=== PATIENT | male | born 1960 | race Caucasian/White ===

== ENCOUNTER 2016-09-26 07:23 | Emergency (ER) | payer BC ==
[2016-09-26] MEDS ORDERED: KETOROLAC TROMETHAMINE 60 MG/2 ML SDV IM ONE (07:59)
--- NOTE | 2016-09-26 08:30 | ER Document Report ---
ED Cardiac - General Chief Complaint: Rib Pain Stated Complaint: RIGHT SIDE PAIN Mode of Arrival: Ambulatory Information source: Patient TRAVEL OUTSIDE OF THE [place] IN LAST 30 DAYS: No - HPI Patient complains to provider of: Chest pain Notes: Patient arrives with complaints of right chest wall pain for the last 2 weeks. The pain has been constant. Seems to be getting slightly worse over the last few days. Pain is worse when he touches the right side of his chest. He denies any cough. He denies any shortness of breath. He denies any abdominal pain. He denies any nausea, vomiting, diarrhea. No rash. No dysuria or hematuria. Patient denies any known medical problems and is on no medications. He is a daily smoker. He denies any recent trips or surgeries, no leg pain or swelling, no history DVT or PE. No hemoptysis. Pain is worse with touching the area, nothing seems to make it better. Denies any diaphoresis. He has no other complaints at this moment. - Related Data Allergies/Adverse Reactions: meperidine HCl [From Demerol] Allergy (Intermediate, Verified 09/26/16 07:34) Hives Past Medical History - Social History Smoking Status: Current Every Day Smoker Chew tobacco use (# tins/day): No Frequency of alcohol use: Heavy Drug Abuse: None Family History: Reviewed & Not Pertinent Patient has suicidal ideation: No Patient has homicidal ideation: No Renal/ Medical History: Denies: Hx Peritoneal Dialysis Past Surgical History: Reports: Hx Appendectomy, Hx Orthopedic Surgery - left thumb; broken rib - Immunizations Immunizations up to date: No Hx Diphtheria, Pertussis, Tetanus Vaccination: Yes Review of Systems - Review of Systems -: Yes All other systems reviewed and negative Physical Exam - Vital signs Vitals: Temp Pulse Resp BP Pulse Ox 98.4 F 93 18 189/96 H 97 09/26/16 07:34 09/26/16 07:34 09/26/16 07:34 09/26/16 07:34 09/26/16 07:34 Interpretation: Normal - General General appearance: Appears well, Alert - HEENT Head: Normocephalic, Atraumatic Eyes: Normal Pupils: PERRL Mouth/Lips: Normal Mucous membranes: Normal - Respiratory Respiratory status: No respiratory distress Chest status: Tender - Right lateral ribs. No crepitus. No mass. Breath sounds: Normal Chest palpation: Normal - Cardiovascular Rhythm: Regular Heart sounds: Normal auscultation Murmur: No - Abdominal Inspection: Normal Distension: No distension Bowel sounds: Normal Tenderness: Nontender Organomegaly: No organomegaly - Back Back: Normal, Nontender. No: CVA tenderness - Extremities General upper extremity: Normal inspection, Nontender, Normal color, Normal ROM , Normal temperature General lower extremity: Normal inspection, Nontender, Normal color, Normal ROM , Normal temperature, Normal weight bearing. No: Tender, Edema, Rolando's sign - Neurological Neuro grossly intact: Yes Cognition: Normal Orientation: AAOx4 Prab[place] Coma Scale Eye Opening: Spontaneous Prabha Coma Scale Verbal: Oriented [place] Coma Scale Motor: Obeys Commands Prabha Coma Scale Total: 15 Speech: Normal Motor strength normal: LUE, RUE, LLE, RLE Sensory: Normal - Psychological Associated symptoms: Normal affect, Normal mood - Skin Skin Temperature: Warm Skin Moisture: Dry Skin Color: Normal Course - Re-evaluation Re-evalutation: 09/26/16 10:23 09/26/16 10:24 Patient is nontoxic appearing with stable vitals. He's had constant right- sided chest pain for the last 2 weeks it has gotten worse over the last few days. Pain is worse with touching the area. He denies any injury. He denies any shortness of breath. He denies any abdominal pain. His exam is benign. He has no abdominal tenderness on exam. LFTs and lipase are normal. Patient has reproducible right lateral chest wall tenderness to palpation. Chest x-ray shows COPD without any other acute abnormalities. Troponin is negative and the patient has had constant chest pain for 2 weeks. Patient has no known CAD, hypertension, hyperlipidemia, diabetes. He is a smoker. This point the patient will be discharged home with NSAIDs for chest wall pain. He has an appointment with a new primary care doctor on Friday. He was instructed to keep this appointment. Follow-up sooner for increased pain, fever, difficulty breathing, abdominal pain, persistent vomiting, or any further concerns. The patient is noted to have elevated blood pressure during today's emergency department visit. The patient was informed of this finding. The patient was instructed that this may be related to pre-hypertension and requires further evaluation with a primary care provider. The patient has no hypertensive symptoms at this time. The patient's emergency department workup and current diagnosis were explained to the patient and or family. Follow-up instructions were provided. Medications if prescribed were discussed. Instructions for when to return to the emergency department including specific worrisome symptoms were discussed with the patient and/or family. - Vital Signs Vital signs: Temp Pulse Resp BP Pulse Ox 98.4 F 93 18 189/96 H 97 09/26/16 07:34 09/26/16 07:34 09/26/16 07:34 09/26/16 07:34 09/26/16 07:34 - Laboratory Result Diagrams: 09/26/16 09:30 09/26/16 09:30 Laboratory results interpreted by me: 09/26/16 09:30 Urine Ketones TRACE H - EKG Interpretation by Tn EKG shows normal: Sinus rhythm, Intervals, QRS Complexes, ST-T Waves Rate: Normal When compared to previous EKG there are: Previous EKG unavailable Additional EKG results interpreted by me: 09/26/16 09:36 Left ventricular hypertrophy Discharge - Discharge Clinical Impression: Chest pain Qualifiers: Chest pain type: unspecified Qualified Code(s): R07.9 - Chest pain, unspecified Condition: Stable Disposition: HOME, SELF-CARE Instructions: Chest Wall Pain ([facility]), Chest Pain of Unclear Cause ([facility]) Additional Instructions: Take medications as prescribed. Follow-up with your new primary care doctor as scheduled on Friday. Follow-up sooner for increased pain, fever, abdominal pain, persistent vomiting, high fever, shortness of breath, or any further concerns. Your blood pressure was elevated during today's visit. Have this rechecked with your doctor. Prescriptions: Diclofenac Sodium [Voltaren] 75 mg PO BID #20 tablet.dr Forms: Elevated Blood Pressure
[2016-09-26 09:43] LABS: ABSOLUTE BASOPHILS # (AUTO) 0.1 10^3/uL (0.0-0.2); ABSOLUTE EOSINOPHILS # (AUTO) 0.1 10^3/uL (0.0-0.6); ABSOLUTE LYMPHOCYTES (AUTO) 1.8 10^3/uL (0.5-4.7); ABSOLUTE MONOCYTES (AUTO) 0.5 10^3/uL (0.1-1.4); ABSOLUTE NEUT (AUTO) 4.5 10^3/uL (1.7-8.2); BASOPHILS % (AUTO) 1.2 % (0-2); EOSINOPHILS % (AUTO) 0.8 % (0-6); HEMATOCRIT 47.1 % (37.9-51.0); HEMOGLOBIN 16.4 g/dL (13.5-17.0); HGB HCT DIFFERENCE 2.1; LYMPHOCYTES % (AUTO) 25.1 % (13-45); MEAN CORPUSCULAR HEMOGLOBIN 32.3 pg (27.0-33.4); MEAN CORPUSCULAR HGB CONC 34.8 g/dL (32.0-36.0); MEAN CORPUSCULAR VOLUME 93 fl (80-97); MONOCYTES % (AUTO) 7.7 % (3-13); RED BLOOD COUNT 5.07 10^6/uL (4.35-5.55); RED CELL DISTRIBUTION WIDTH 13.2 % (11.5-14.0); SEGMENTED NEUTROPHILS % (AUTO) 65.2 % (42-78)
[2016-09-26 09:45] LABS: APPEARANCE,URINE CLEAR; BILIRUBIN,URINE NEGATIVE (NEGATIVE); GLUCOSE, URINE NEGATIVE (NEGATIVE); KETONES,URINE TRACE mg/dL (NEGATIVE); LEUKOCYTE ESTERASE,URINE NEGATIVE (NEGATIVE); NITRITE,URINE NEGATIVE (NEGATIVE); PROTEIN,URINE NEGATIVE (NEGATIVE); URINE SPECIFIC GRAVITY 1.014; UROBILINOGEN,URINE NEGATIVE mg/dL (<2.0)
[2016-09-26 09:58] LABS: ALANINE AMINOTRANSFERASE 43 U/L (21-72); ALBUMIN 4.2 g/dL (3.5-5.0); ALKALINE PHOSPHATASE 119 U/L (38-126); ANION GAP 10 (5-19); ASPARTATE AMINO TRANSFERASE 46 U/L (17-59); BILIRUBIN,DIRECT 0.2 mg/dL (0.0-0.4); BILIRUBIN,TOTAL 0.7 mg/dL (0.2-1.3); BLOOD UREA NITROGEN 9 mg/dL (7-20); CALCIUM 9.3 mg/dL (8.4-10.2); CARBON DIOXIDE 29 mmol/L (22-30); CHLORIDE 101 mmol/L (98-107); CREATINE KINASE 166 U/L (55-170); CREATININE RESULT 0.78 mg/dL (0.52-1.25); GLUCOSE 78 mg/dL (75-110); LIPASE 105.9 U/L (23-300); POTASSIUM 4.7 mmol/L (3.6-5.0); TOTAL PROTEIN 7.7 g/dL (6.3-8.2)
[2016-09-26 11:48] VITALS: BP 150/84
--- NOTE | 2016-09-26 15:32 | EKG REPORT ---
SEVERITY:- ABNORMAL ECG - SINUS RHYTHM LEFT VENTRICULAR HYPERTROPHY ANTERIOR Q WAVES, POSSIBLY DUE TO LVH : Confirmed by: Cecilia Lemos MD 26-Sep-2016 15:31:49
== END 2016-09-26 11:39 | disposition home or self-care (01) ==
LOC: ER 07:23
DX: R07.89 Other chest pain (principal); J44.9 Chronic obstructive pulmonary disease, unspecified; I51.7 Cardiomegaly; R03.0 Elevated blood-pressure reading, without diagnosis of hypertension; F17.200 Nicotine dependence, unspecified, uncomplicated; Z88.5 Allergy status to narcotic agent
CPT/HCPCS: 93005; 99284; 96374; 36415; 82550; 83690; 85025; 80053; 81001; 84484; 71020; 93010; J1885

== ENCOUNTER 2016-09-28 05:27 | Emergency (ER) | payer BC ==
--- NOTE | 2016-09-28 06:08 | EKG REPORT ---
SEVERITY:- BORDERLINE ECG - SINUS RHYTHM BORDERLINE R WAVE PROGRESSION, ANTERIOR LEADS BORDERLINE T ABNORMALITIES, INFERIOR LEADS : Confirmed by: Carina Dixon 28-Sep-2016 06:07:32
[2016-09-28 06:26] LABS: ABSOLUTE BASOPHILS # (AUTO) 0.1 10^3/uL (0.0-0.2); ABSOLUTE EOSINOPHILS # (AUTO) 0.1 10^3/uL (0.0-0.6); ABSOLUTE LYMPHOCYTES (AUTO) 1.2 10^3/uL (0.5-4.7); ABSOLUTE MONOCYTES (AUTO) 0.5 10^3/uL (0.1-1.4); ABSOLUTE NEUT (AUTO) 7.1 10^3/uL (1.7-8.2); BASOPHILS % (AUTO) 0.6 % (0-2); EOSINOPHILS % (AUTO) 1.1 % (0-6); HEMATOCRIT 47.1 % (37.9-51.0); HEMOGLOBIN 16.3 g/dL (13.5-17.0); HGB HCT DIFFERENCE 1.8; LYMPHOCYTES % (AUTO) 13.9 % (13-45); MEAN CORPUSCULAR HEMOGLOBIN 32.3 pg (27.0-33.4); MEAN CORPUSCULAR HGB CONC 34.7 g/dL (32.0-36.0); MEAN CORPUSCULAR VOLUME 93 fl (80-97); MONOCYTES % (AUTO) 5.7 % (3-13); RED BLOOD COUNT 5.06 10^6/uL (4.35-5.55); RED CELL DISTRIBUTION WIDTH 13.6 % (11.5-14.0); SEGMENTED NEUTROPHILS % (AUTO) 78.7 % (42-78)
[2016-09-28 06:37] LABS: ALANINE AMINOTRANSFERASE 40 U/L (21-72); ALBUMIN 3.9 g/dL (3.5-5.0); ALKALINE PHOSPHATASE 96 U/L (38-126); ANION GAP 14 (5-19); ASPARTATE AMINO TRANSFERASE 36 U/L (17-59); BILIRUBIN,DIRECT 0.3 mg/dL (0.0-0.4); BILIRUBIN,TOTAL 0.5 mg/dL (0.2-1.3); BLOOD UREA NITROGEN 7 mg/dL (7-20); CALCIUM 9.1 mg/dL (8.4-10.2); CARBON DIOXIDE 23 mmol/L (22-30); CHLORIDE 107 mmol/L (98-107); CREATINE KINASE 188 U/L (55-170); CREATININE RESULT 0.75 mg/dL (0.52-1.25); GLUCOSE 102 mg/dL (75-110); POTASSIUM 4.2 mmol/L (3.6-5.0); SODIUM 143.6 mmol/L (137-145); TOTAL PROTEIN 7.3 g/dL (6.3-8.2)
[2016-09-28 06:48] LABS: CREATINE KINASE MB 1.73 ng/mL (<4.55)
[2016-09-28 07:00] LABS: TROPONIN I < 0.012 ng/mL
[2016-09-28] MEDS ORDERED: MECLIZINE HCL 25 MG TABLET PO ONE (07:28)
--- NOTE | 2016-09-28 07:31 | ER Document Report ---
ED General - General Chief Complaint: Dizziness Stated Complaint: DIZZINESS AND BLOOD IN STOOL Mode of Arrival: Ambulatory Information source: Patient Notes: 56-year-old male presents with complaints of one month duration of right rib pain and 4 day duration of intermittent dizziness and one episode of bright red rectal bleeding today. Patient denies any pain anywhere else. right rib pain is worsened with palpation and side bending. Denies any chest pain denies any shortness breath diaphoresis. Denies any aggravating or relieving factors for his dizziness. Denies any earache headache neurological deficits TRAVEL OUTSIDE OF THE [place] IN LAST 30 DAYS: No - HPI Onset: Other Onset/Duration: Persistent Quality of pain: Sharp Severity: Mild Pain Level: 1 Associated symptoms: Body/muscle aches, Weakness Exacerbated by: Denies Relieved by: Denies Similar symptoms previously: Yes Recently seen / treated by doctor: Yes - Related Data Allergies/Adverse Reactions: meperidine HCl [From Demerol] Allergy (Intermediate, Verified 09/26/16 07:34) Hives Past Medical History - Social History Smoking Status: Current Every Day Smoker Cigarette use (# per day): Yes Chew tobacco use (# tins/day): No Smoking Education Provided: No Frequency of alcohol use: Heavy Drug Abuse: Marijuana Family History: Reviewed & Not Pertinent Patient has suicidal ideation: No Patient has homicidal ideation: No Pulmonary Medical History: Reports: Hx COPD - recently diagnosised Renal/ Medical History: Denies: Hx Peritoneal Dialysis Past Surgical History: Reports: Hx Appendectomy, Hx Orthopedic Surgery - left thumb; broken rib - Immunizations Immunizations up to date: No Hx Diphtheria, Pertussis, Tetanus Vaccination: Yes Review of Systems - Review of Systems Notes: REVIEW OF SYSTEMS: CONSTITUTIONAL : Denies fever, chills, or sweats. Denies recent illness. EENT: Denies eye, ear, throat, or mouth pain or symptoms. Denies nasal or sinus congestion or discharge. Denies throat, tongue, or mouth swelling or difficulty swallowing. CARDIOVASCULAR: Denies chest pain. Denies palpitations or racing or irregular heart beat. Denies ankle edema. Admits to right rib pain RESPIRATORY: Denies cough, cold, or chest congestion. Denies shortness of breath, difficulty breathing, or wheezing. GASTROINTESTINAL: Denies abdominal pain or distention. Denies nausea, vomiting , or diarrhea. Denies black, tarry stools. Denies constipation. Admits to rectal bleeding GENITOURINARY: Denies difficulty urinating, painful urination, burning, frequency, blood in urine, or discharge. MUSCULOSKELETAL: Denies back or neck pain or stiffness. Denies joint pain or swelling. SKIN: Denies rash, lesions or sores. HEMATOLOGIC : Denies easy bruising or bleeding. LYMPHATIC: Denies swollen, enlarged glands. NEUROLOGICAL: Admits to dizziness PSYCHIATRIC: Denies anxiety or stress. Denies depression, suicidal ideation, or homicidal ideation. ALL OTHER SYSTEMS REVIEWED AND NEGATIVE. Dictation was performed using [employer] recognition software PHYSICAL EXAMINATION: GENERAL: Well-appearing, well-nourished and in no acute distress. HEAD: Atraumatic, normocephalic. EYES: Pupils equal round and reactive to light, extraocular movements intact, sclera anicteric, conjunctiva are normal. ENT: Nares patent, oropharynx clear without exudates. Moist mucous membranes. NECK: Normal range of motion, supple without lymphadenopathy LUNGS: Breath sounds clear to auscultation bilaterally and equal. No wheezes rales or rhonchi. Tenderness on palpation of the right rib anterior 10 HEART: Regular rate and rhythm without murmurs ABDOMEN: Soft, nontender, nondistended abdomen. No guarding, no rebound. No masses appreciated. Musculoskeletal: Normal range of motion, no pitting or edema. No cyanosis. NEUROLOGICAL: Cranial nerves grossly intact. Normal speech, normal gait. Normal sensory, motor exams PSYCH: Normal mood, normal affect. SKIN: Warm, Dry, normal turgor, no rashes or lesions noted. Physical Exam - Vital signs Vitals: Temp Pulse Resp BP Pulse Ox 98.2 F 71 16 154/95 H 96 09/28/16 05:32 09/28/16 05:32 09/28/16 05:32 09/28/16 05:32 09/28/16 05:32 Course - Re-evaluation Re-evalutation: 09/28/16 07:31 Patient's lab work again notes no significant abnormality, CTs have been ordered patient treated for his dizziness Hemoccult was negative 09/28/16 09:06 CT is concerning for a nondisplaced fracture. Patient otherwise appears well, lab work note no significant abnormality. No significant abnormality noted for dizziness, I will have the patient follow- up with cardiology After performing a Medical Screening Examination, I estimate there is LOW risk for INTRACRANIAL HEMORRHAGE, ISCHEMIC CVA, MALIGNANT DYSRHYTHMIA, ACUTE CORONARY SYNDROME, MENINGITIS, PULMONARY EMBOLISM, or SEPSIS thus I consider the discharge disposition reasonable. The patient and I have discussed the diagnosis and risks, and we agree with discharging home with close follow-up with the understanding that symptoms and presentations can change. We also discussed returning to the Emergency Department immediately if new or worsening symptoms occur. We have discussed the symptoms which are most concerning (e.g., changing or worsening pain, weakness, vomiting, fever) that necessitate immediate return. - Vital Signs Vital signs: Temp Pulse Resp BP Pulse Ox 98.3 F 71 16 154/95 H 99 09/28/16 05:32 09/28/16 05:32 09/28/16 06:01 09/28/16 06:01 09/28/16 06:01 - Laboratory Result Diagrams: 09/28/16 05:10 09/28/16 05:10 Laboratory results interpreted by me: 09/28/16 09/28/16 05:10 05:10 Seg Neutrophils % 78.7 H Creatine Kinase 188 H - Diagnostic Test Radiology reviewed: Image reviewed, Reports reviewed - EKG Interpretation by Me EKG shows normal: Sinus rhythm, [place], Intervals, QRS Complexes Discharge - Discharge Clinical Impression: Dizzy, Rectal bleeding Rib fracture Qualifiers: Encounter type: initial encounter Rib fracture type: single rib Fracture type: closed Laterality: right Qualified Code(s): S22.31XA - Fracture of one rib, right side, initial encounter for closed fracture Condition: Stable Disposition: HOME, SELF-CARE Instructions: Dizziness ([facility]) Prescriptions: Hydrocodone/Acetaminophen [[place] 5-325 mg Tablet] 1 tab PO Q6 #14 tablet Meclizine HCl [Antivert 25 mg Tablet] 25 mg PO TID PRN #21 tablet PRN Reason: Referrals: DAVID BOUCHER MD [ACTIVE STAFF] - Follow up tomorrow
[2016-09-28 09:26] VITALS: BP 164/102
[2016-09-28] MEDS ORDERED: OXYCODONE-ACETAMINOPHEN 5-325 MG TABLET PO ONE (09:26)
== END 2016-09-28 09:38 | disposition home or self-care (01) ==
LOC: ER 05:27
DX: S22.31XA Fracture of one rib, right side, initial encounter for closed fracture (principal); R42 Dizziness and giddiness; R19.5 Other fecal abnormalities; R07.81 Pleurodynia; F17.210 Nicotine dependence, cigarettes, uncomplicated; X58.XXXA Exposure to other specified factors, initial encounter
CPT/HCPCS: 36415; 70450; 71250; 80053; 82272; 82550; 82553; 84484; 85025; 93005; 93010; 99284

== ENCOUNTER 2017-05-11 21:01 | Emergency (ER) | payer BC ==
[2017-05-11] MEDS ORDERED: ASPIRIN 81 MG TABLET, CHEWABLE PO ONE (23:09)
[2017-05-11] MEDS ORDERED: ASPIRIN 81 MG TABLET, CHEWABLE ONE (23:09)
--- NOTE | 2017-05-11 23:09 | ER Document Report ---
ED Medical Screen (RME) - General Chief Complaint: Chest Pain Stated Complaint: CHEST/LEFT ARM PAIN Time Seen by Provider: 05/11/17 23:07 Mode of Arrival: Ambulatory Information source: Patient TRAVEL OUTSIDE OF THE [place] IN LAST 30 DAYS: No - HPI Patient complains to provider of: Chest pain Onset: Yesterday Notes: 05/11/17 23:08 Patient is a 57-year-old male who began experiencing left-sided chest pain yesterday, he is having pain down the left arm today as well, reports associated shortness of breath, no aggravating or alleviating factors, no history of coronary artery disease - Related Data Allergies/Adverse Reactions: meperidine HCl [From Demerol] Allergy (Intermediate, Verified 09/26/16 07:34) Hives Past Medical History Pulmonary Medical History: Reports: Hx COPD - recently diagnosised Renal/ Medical History: Denies: Hx Peritoneal Dialysis Past Surgical History: Reports: Hx Appendectomy, Hx Orthopedic Surgery - left thumb; broken rib - Immunizations Immunizations up to date: No Hx Diphtheria, Pertussis, Tetanus Vaccination: Yes
[2017-05-11 23:32] LABS: ABSOLUTE BASOPHILS # (AUTO) 0.1 10^3/uL (0.0-0.2); ABSOLUTE EOSINOPHILS # (AUTO) 0.1 10^3/uL (0.0-0.6); ABSOLUTE LYMPHOCYTES (AUTO) 1.5 10^3/uL (0.5-4.7); ABSOLUTE MONOCYTES (AUTO) 0.7 10^3/uL (0.1-1.4); ABSOLUTE NEUT (AUTO) 6.2 10^3/uL (1.7-8.2); BASOPHILS % (AUTO) 1.2 % (0-2); EOSINOPHILS % (AUTO) 1.1 % (0-6); HEMATOCRIT 45.8 % (37.9-51.0); HGB HCT DIFFERENCE 2.2; LYMPHOCYTES % (AUTO) 17.1 % (13-45); MEAN CORPUSCULAR HEMOGLOBIN 32.3 pg (27.0-33.4); MEAN CORPUSCULAR VOLUME 92 fl (80-97); MONOCYTES % (AUTO) 8.4 % (3-13); RED BLOOD COUNT 4.96 10^6/uL (4.35-5.55); RED CELL DISTRIBUTION WIDTH 12.2 % (11.5-14.0); SEGMENTED NEUTROPHILS % (AUTO) 72.2 % (42-78); WHITE BLOOD COUNT 8.6 10^3/uL (4.0-10.5)
[2017-05-11] MEDS ORDERED: HYDROCODONE/ACETAMINOPHEN 5-325 MG TABLET PO ONE (23:37)
[2017-05-11] MEDS ORDERED: ONDANSETRON 4 MG TAB.RAPDIS PO ONE (23:37)
--- NOTE | 2017-05-11 23:39 | ER Document Report ---
ED General - General Chief Complaint: Chest Pain Stated Complaint: CHEST/LEFT ARM PAIN Time Seen by Provider: 05/11/17 23:07 Mode of Arrival: Ambulatory Notes: Patient is a 57-year-old male comes emergency department for chief complaint of chest pain and left shoulder pain. He states that since yesterday his left shoulder has been hurting constantly, he cannot lift it over his head, he reports tingling sensation in his hand occasionally. He also states that he started to have pain across his left chest and right chest as well. He has not taken anything for this. He denies injury. He denies history of the same. He states that he has had some shortness of breath when the pain gets very sharp, denies nausea or vomiting, denies current shortness of breath. Denies fever. He smokes, he was told he has COPD, otherwise he denies any diagnosed medical problems. Never had a stress test, never had a heart attack. TRAVEL OUTSIDE OF THE [place] IN LAST 30 DAYS: No - Related Data Allergies/Adverse Reactions: meperidine HCl [From Demerol] Allergy (Intermediate, Verified 09/26/16 07:34) Hives Past Medical History - General Information source: Patient - Social History Smoking Status: Current Every Day Smoker Smoking Education Provided: Yes - <3 min Frequency of alcohol use: Occasional Drug Abuse: Marijuana Lives with: Family Family History: Reviewed & Not Pertinent Patient has suicidal ideation: No Patient has homicidal ideation: No Pulmonary Medical History: Reports: Hx COPD Renal/ Medical History: Denies: Hx Peritoneal Dialysis Past Surgical History: Reports: Hx Appendectomy, Hx Orthopedic Surgery - left thumb; broken rib - Immunizations Immunizations up to date: No Hx Diphtheria, Pertussis, Tetanus Vaccination: Yes Review of Systems - Review of Systems Constitutional: No symptoms reported EENT: No symptoms reported Cardiovascular: See HPI Respiratory: See HPI Gastrointestinal: No symptoms reported Genitourinary: No symptoms reported Male Genitourinary: No symptoms reported Musculoskeletal: No symptoms reported Skin: No symptoms reported Hematologic/Lymphatic: No symptoms reported Neurological/Psychological: No symptoms reported Physical Exam - Vital signs Vitals: Pulse Ox 98 05/11/17 23:09 Interpretation: Normal - General General appearance: Appears well, Alert - HEENT Head: Normocephalic, Atraumatic Eyes: Normal Pupils: PERRL - Respiratory Respiratory status: No respiratory distress. No: Labored, Retractions, Tachypnea Chest status: Nontender Breath sounds: Decreased air movement. No: Rales, Rhonchi, Stridor, Wheezing Chest palpation: Normal - Cardiovascular Rhythm: Regular. No: Tachycardia, Bradycardia Heart sounds: Normal auscultation, S1 appreciated, S2 appreciated Murmur: No - Abdominal Inspection: Normal Distension: No distension Bowel sounds: Normal Tenderness: Nontender. 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 General lower extremity: Normal inspection, Nontender, Normal color, Normal ROM , Normal temperature, Normal weight bearing. No: Rolando's sign - Neurological Neuro grossly intact: Yes Cognition: Normal Orientation: AAOx4 [place] Coma Scale Eye Opening: Spontaneous [place] Coma Scale Verbal: Oriented [place] Coma Scale Motor: Obeys Commands [place] Coma Scale Total: 15 Speech: Normal Motor strength normal: LUE, RUE, LLE, RLE Sensory: Normal - Psychological Associated symptoms: Normal affect, Normal mood - Skin Skin Temperature: Warm Skin Moisture: Dry Skin Color: Normal Course - Re-evaluation Re-evalutation: EKG showing sinus rhythm, borderline abnormalities with slightly inverted T waves inferiorly, no significant T-wave depressions, no noted ST segment changes , no significant change from prior EKG. Chest x-ray with no acute findings. Patient has 2 complaints, he has a painful shoulder including the rotator cuff and trapezius muscle on the left side with limited range of motion of the left arm with abduction due to pain, however he separately has pain in his chest that began earlier today which prompted him coming in tonight. He was treated for both with aspirin and pain medication. CBC unremarkable, chemistry generally unremarkable. Troponin is elevated at 0.261 consistent with NSTEMI. Patient given nitroglycerin, Lovenox. On reevaluation patient states he does have some pain in his arm but he feels much better otherwise. No hypotension, tachycardia, patient clinically appears well. Discussed with Dr. Ghotra. Discussed results with patient. We do not have interventional cardiology at this facility. Patient requests [facility]. 05/12/17 00:30 Called [facility] transfer center, pending call back. 05/12/17 01:23 Spoke to transfer center, still pending call back from cardiology, report is they are backed up but will call soon. Patient no longer having chest pain, he does have the left shoulder pain but this seems musculoskeletal and appears to be a separate issue (along with lost range of motion with musculoskeletal strain ). Patient states he does not have the chest pain that he had earlier but he will let me know if it returns. 05/12/17 01:39 Transfer accepted by [facility]. 05/12/17 03:50 Patient reevaluated, transport team is almost here, he denies any chest pain, he states he feels "great now". Vital signs with no significant change from prior. Stable for transport. - Vital Signs Vital signs: Temp Pulse Resp BP Pulse Ox 18 122/98 H 95 05/12/17 03:02 05/12/17 03:02 05/12/17 03:02 - Laboratory Result Diagrams: 05/11/17 23:14 05/11/17 23:14 Laboratory results interpreted by me: 05/11/17 23:14 Creatine Kinase 188 H Discharge - Discharge Clinical Impression: NSTEMI (non-ST elevated myocardial infarction) Chest pain Qualifiers: Chest pain type: unspecified Qualified Code(s): R07.9 - Chest pain, unspecified Left shoulder pain Qualifiers: Chronicity: acute Qualified Code(s): M25.512 - Pain in left shoulder Condition: Stable Disposition: [facility]
[2017-05-11 23:45] LABS: ALANINE AMINOTRANSFERASE 43 U/L (21-72); ALBUMIN 4.1 g/dL (3.5-5.0); ALKALINE PHOSPHATASE 112 U/L (38-126); ANION GAP 15 (5-19); ASPARTATE AMINO TRANSFERASE 33 U/L (17-59); BILIRUBIN,DIRECT 0.4 mg/dL (0.0-0.4); BILIRUBIN,TOTAL 0.5 mg/dL (0.2-1.3); BLOOD UREA NITROGEN 12 mg/dL (7-20); CALCIUM 9.2 mg/dL (8.4-10.2); CARBON DIOXIDE 25 mmol/L (22-30); CHLORIDE 101 mmol/L (98-107); CREATINE KINASE 188 U/L (55-170); GLUCOSE 104 mg/dL (75-110); POTASSIUM 4.5 mmol/L (3.6-5.0); SODIUM 140.5 mmol/L (137-145); TOTAL PROTEIN 8.1 g/dL (6.3-8.2)
[2017-05-11 23:57] LABS: CREATINE KINASE MB 3.02 ng/mL (<4.55)
--- NOTE | 2017-05-12 00:02 | RADIOLOGY REPORT (SQ) ---
EXAM DESCRIPTION: CHEST PA/LAT COMPLETED DATE/TIME: 05/11/2017 11:53 pm REASON FOR STUDY: cp COMPARISON: September 2016 EXAM PARAMETERS: NUMBER OF VIEWS: two views TECHNIQUE: Digital Frontal and Lateral radiographic views of the chest acquired. RADIATION DOSE: NA LIMITATIONS: none FINDINGS: LUNGS AND PLEURA: No opacities, masses or pneumothorax. No pleural effusion. Again there is evidence for obstructive lung disease. MEDIASTINUM AND HILAR STRUCTURES: No masses or contour abnormalities. HEART AND VASCULAR STRUCTURES: Heart normal size. No evidence for failure. BONES: No acute findings. HARDWARE: None in the chest. OTHER: No other significant finding. IMPRESSION: No significant interval change. No acute findings. Other findings as noted above TECHNICAL DOCUMENTATION: JOB ID: [id number] [employer]- All Rights Reserved
[2017-05-12 00:11] LABS: TROPONIN I 0.281 ng/mL
[2017-05-12] MEDS ORDERED: MORPHINE SULFATE 10 MG/ML INJ IV ONE (00:20)
[2017-05-12] MEDS ORDERED: NITROGLYCERIN 2% OINTMENT 1 GM PACKET TP ONE (00:20)
[2017-05-12] MEDS ORDERED: ENOXAPARIN SODIUM INJ 80 MG/0.8 ML DISP.SYRIN SUBCUT SCH (00:30)
[2017-05-12 03:52] VITALS: BP 122/98
--- NOTE | 2017-05-12 23:19 | EKG REPORT ---
SEVERITY:- ABNORMAL ECG - SINUS RHYTHM LEFT VENTRICULAR HYPERTROPHY BORDERLINE T ABNORMALITIES, INFERIOR LEADS : Confirmed by: Carina Dixon 12-May-2017 23:18:54
== END 2017-05-12 04:19 | disposition short-term general hospital (02) ==
LOC: ER 21:01
DX: I21.4 Non-ST elevation (NSTEMI) myocardial infarction (principal); R07.9 Chest pain, unspecified; M25.512 Pain in left shoulder; F17.200 Nicotine dependence, unspecified, uncomplicated; J44.9 Chronic obstructive pulmonary disease, unspecified
CPT/HCPCS: 93005; 99285; 96372; 96374; 36415; 82553; 82550; 85025; 80053; 84484; 71020; 93010; S0119; J2270; J1650

== ENCOUNTER 2017-08-29 23:55 | Emergency (ER) | payer BC ==
[2017-08-29] MEDS ORDERED: ASPIRIN 81 MG TABLET, CHEWABLE PO ONE (23:58)
--- NOTE | 2017-08-30 00:31 | ER Document Report ---
ED General - General Chief Complaint: Chest Pain Stated Complaint: CHEST PAIN Time Seen by Provider: 08/30/17 00:12 Mode of Arrival: Ambulatory Information source: Patient Notes: 57-year-old male history of [place] in April who has been off his Plavix for the past week presents with complaints of chest pain. Patient notes this feels pretty similar to previous [place]. He denies any fevers or chills admits to nausea states the pain is across his chest and woke him up from sleep TRAVEL OUTSIDE OF THE [place] IN LAST 30 DAYS: No - HPI Onset: Just prior to arrival Onset/Duration: Sudden Quality of pain: Pressure Severity: Moderate Pain Level: 3 Associated symptoms: Chest pain Exacerbated by: Denies Relieved by: Denies Similar symptoms previously: Yes Recently seen / treated by doctor: Yes - Related Data Allergies/Adverse Reactions: meperidine HCl [From Demerol] Allergy (Intermediate, Verified 08/29/17 23:55) Hives Past Medical History - Social History Smoking Status: Never Smoker Cigarette use (# per day): No Chew tobacco use (# tins/day): No Smoking Education Provided: No Family History: Reviewed & Not Pertinent Pulmonary Medical History: Reports: Hx COPD Renal/ Medical History: Denies: Hx Peritoneal Dialysis Past Surgical History: Reports: Hx Appendectomy, Hx Orthopedic Surgery - left thumb; broken rib - Immunizations Immunizations up to date: No Hx Diphtheria, Pertussis, Tetanus Vaccination: Yes Review of Systems - Review of Systems Notes: REVIEW OF SYSTEMS: CONSTITUTIONAL : Denies fever, chills, or sweats. Denies recent illness. EENT: Denies eye, ear, throat, or mouth pain or symptoms. Denies nasal or sinus congestion or discharge. Denies throat, tongue, or mouth swelling or difficulty swallowing. CARDIOVASCULAR: Admits to chest pain. RESPIRATORY: Denies cough, cold, or chest congestion. Denies shortness of breath, difficulty breathing, or wheezing. GASTROINTESTINAL: Denies abdominal pain or distention. Denies nausea, vomiting , or diarrhea. Denies blood in vomitus, stools, or per rectum. Denies black, tarry stools. Denies constipation. GENITOURINARY: Denies difficulty urinating, painful urination, burning, frequency, blood in urine, or discharge. MUSCULOSKELETAL: Denies back or neck pain or stiffness. Denies joint pain or swelling. SKIN: Denies rash, lesions or sores. HEMATOLOGIC : Denies easy bruising or bleeding. LYMPHATIC: Denies swollen, enlarged glands. NEUROLOGICAL: Denies confusion or altered mental status. Denies passing out or loss of consciousness. Denies dizziness or lightheadedness. Denies headache. Denies weakness or paralysis or loss of use of either side. Denies problems with gait or speech. Denies sensory loss, numbness, or tingling. Denies seizures. PSYCHIATRIC: Denies anxiety or stress. Denies depression, suicidal ideation, or homicidal ideation. ALL OTHER SYSTEMS REVIEWED AND NEGATIVE. Dictation was performed using [employer] voice recognition software PHYSICAL EXAMINATION: GENERAL: Well-appearing, well-nourished and in no acute distress. HEAD: Atraumatic, normocephalic. EYES: Pupils equal round and reactive to light, extraocular movements intact, sclera anicteric, conjunctiva are normal. ENT: Nares patent, oropharynx clear without exudates. Moist mucous membranes. NECK: Normal range of motion, supple without lymphadenopathy LUNGS: Breath sounds clear to auscultation bilaterally and equal. No wheezes rales or rhonchi. HEART: Regular rate and rhythm without murmurs ABDOMEN: Soft, nontender, nondistended abdomen. No guarding, no rebound. No masses appreciated. Musculoskeletal: Normal range of motion, no pitting or edema. No cyanosis. NEUROLOGICAL: Cranial nerves grossly intact. Normal speech, normal gait. Normal sensory, motor exams PSYCH: Normal mood, normal affect. SKIN: Warm, Dry, normal turgor, no rashes or lesions noted. Physical Exam - Vital signs Vitals: Pulse Ox 95 08/29/17 23:57 Course - Re-evaluation Re-evalutation: 08/30/17 00:47 I have very high suspicion for cardiac events, EKG did note depressions in 2 3 aVF 08/30/17 01:14 troponin elevated, [facility] paged, heparin started 08/30/17 01:36 Dr Henriquez accepts the patient , 08/30/17 02:32 Upon reevaluation of the patient, he is now having worsening chest pain, nitro drip will be started, I did contact [facility] requesting for flight at this point given ST changes - Vital Signs Vital signs: Temp Pulse Resp BP Pulse Ox 97.8 F 80 18 168/99 H 96 08/30/17 00:05 08/30/17 00:05 08/30/17 02:01 08/30/17 02:01 08/30/17 02:01 - Laboratory Result Diagrams: 08/30/17 00:25 08/30/17 00:25 Laboratory results interpreted by me: 08/30/17 00:25 Creatine Kinase 175 H - Diagnostic Test Radiology reviewed: Image reviewed, Reports reviewed - EKG Interpretation by Me EKG shows normal: Sinus rhythm, [place], Intervals. abnormal: ST-T Waves - ST depressions noted in 2 3 and aVF When compared to previous EKG there are: Changes noted, Other - Second EKG performed no ST elevations noted consistent depression seen Critical Care Note - Critical Care Note Total time excluding time spent on procedures (mins): 46 Comments: 46 minutes of critical care time spent in direct contact evaluating and reevaluating the patient, treating symptoms, reviewing labs and studies and speaking with family and consultants excluding any procedures Discharge - Discharge Clinical Impression: NSTEMI (non-ST elevated myocardial infarction) Condition: Fair Disposition: [facility] Additional Instructions: Follow up with your physician tomorrow for further care or return to the ED IMMEDIATELY if symptoms worsen or new concerns occur. If you cannot afford to follow up with your primary care physician a list of low cost clinics have been provided at the end of your discharge papers as well.
[2017-08-30 00:39] LABS: ABSOLUTE BASOPHILS # (AUTO) 0.1 10^3/uL (0.0-0.2); ABSOLUTE EOSINOPHILS # (AUTO) 0.2 10^3/uL (0.0-0.6); ABSOLUTE LYMPHOCYTES (AUTO) 1.7 10^3/uL (0.5-4.7); ABSOLUTE MONOCYTES (AUTO) 0.5 10^3/uL (0.1-1.4); ABSOLUTE NEUT (AUTO) 4.5 10^3/uL (1.7-8.2); BASOPHILS % (AUTO) 0.7 % (0-2); HEMATOCRIT 45.4 % (37.9-51.0); HEMOGLOBIN 15.5 g/dL (13.5-17.0); LYMPHOCYTES % (AUTO) 24.5 % (13-45); MEAN CORPUSCULAR HGB CONC 34.2 g/dL (32.0-36.0); MEAN CORPUSCULAR VOLUME 94 fl (80-97); MONOCYTES % (AUTO) 7.2 % (3-13); PLATELET COUNT 277 10^3/uL (150-450); RED BLOOD COUNT 4.84 10^6/uL (4.35-5.55); RED CELL DISTRIBUTION WIDTH 13.8 % (11.5-14.0); SEGMENTED NEUTROPHILS % (AUTO) 64.6 % (42-78); TOTAL CELLS COUNTED % (AUTO) 100 %
[2017-08-30] MEDS ORDERED: ONDANSETRON HCL INJ/PF 4 MG/2 ML SDV IV ONE (00:44)
[2017-08-30] MEDS ORDERED: MORPHINE SULFATE 10 MG/ML INJ IV ONE (00:44)
[2017-08-30] MEDS ORDERED: FENTANYL CITRATE INJ/PF 100 MCG/2 ML AMPUL IV ONE (00:48)
[2017-08-30] MEDS: NITROGLYCERIN 0.4 MG/TAB 25 TAB/BOTTLE SL PRN ×2 (00:53→02:18)
[2017-08-30 00:57] LABS: ALANINE AMINOTRANSFERASE 25 U/L (21-72); ALBUMIN 4.2 g/dL (3.5-5.0); ALKALINE PHOSPHATASE 80 U/L (38-126); ANION GAP 14 (5-19); ASPARTATE AMINO TRANSFERASE 28 U/L (17-59); BILIRUBIN,DIRECT 0.3 mg/dL (0.0-0.4); BILIRUBIN,TOTAL 0.3 mg/dL (0.2-1.3); BLOOD UREA NITROGEN 11 mg/dL (7-20); CALCIUM 9.3 mg/dL (8.4-10.2); CARBON DIOXIDE 24 mmol/L (22-30); CHLORIDE 103 mmol/L (98-107); CREATINE KINASE 175 U/L (55-170); GLUCOSE 97 mg/dL (75-110); POTASSIUM 4.1 mmol/L (3.6-5.0); SODIUM 141.3 mmol/L (137-145); TOTAL PROTEIN 7.4 g/dL (6.3-8.2)
[2017-08-30 01:07] LABS: CREATINE KINASE MB 3.28 ng/mL (<4.55)
[2017-08-30 01:08] LABS: TROPONIN I 0.54 ng/mL
[2017-08-30] MEDS ORDERED: HEPARIN SODIUM,PORCINE/D5W 25,000 UNIT/250 ML RTUINJ IV PRN (01:10)
[2017-08-30] MEDS ORDERED: HEPARIN SOD (PORCINE) 1,000 UNIT/ML 10 ML VIAL IV ONE (01:10)
--- NOTE | 2017-08-30 01:23 | RADIOLOGY REPORT (SQ) ---
EXAM DESCRIPTION: CHEST SINGLE VIEW CLINICAL HISTORY: chest pain COMPARISON: 05/11/2017 FINDINGS: Single frontal view of the chest. The cardiomediastinal silhouette has normal size and contour. No consolidation, pneumothorax, or pleural effusion. Hyperinflation. Leads overlie the chest. No displaced rib fractures identified. Upper abdominal soft tissues are unremarkable. IMPRESSION: 1. No acute pulmonary process identified.
[2017-08-30 01:27] LABS: INTERNATIONAL RATION (INR) 0.83
[2017-08-30 01:28] LABS: PARTIAL THROMBOPLASTIN TIME 28.4 SEC (23.5-35.8)
[2017-08-30] MEDS ORDERED: NITROGLYCERIN/D5W 50 MG/250 ML RTUINJ IV PRN (02:32)
[2017-08-30 03:36] VITALS: BP 159/125
[2017-08-30] MEDS ORDERED: HEPARIN SOD (PORCINE) 1,000 UNIT/ML 10 ML VIAL IV PRN (04:11)
--- NOTE | 2017-08-30 09:39 | EKG REPORT ---
SEVERITY:- ABNORMAL ECG - SINUS RHYTHM ABNORMAL T, CONSIDER ISCHEMIA, INFERIOR LEADS : Confirmed by: Carina Dixon 30-Aug-2017 09:39:08
--- NOTE | 2017-08-30 09:40 | EKG REPORT ---
SEVERITY:- ABNORMAL ECG - SINUS RHYTHM ABNORMAL T, CONSIDER ISCHEMIA, INFERIOR LEADS : Confirmed by: Carina Dixon 30-Aug-2017 09:39:29
== END 2017-08-30 03:30 | disposition short-term general hospital (02) ==
LOC: ER 23:55
DX: I21.4 Non-ST elevation (NSTEMI) myocardial infarction (principal); R07.9 Chest pain, unspecified; I25.2 Old myocardial infarction; Z79.02 Long term (current) use of antithrombotics/antiplatelets
CPT/HCPCS: 93005 ×2; 99291; 96375; 96365; 96368; 36415; 82553; 82550; 85025; 85610; 85730; 80053; 84484; 71045; 93010 ×2; J1644 ×2; J3010; J2405; J3490

== ENCOUNTER 2017-12-31 05:30 | Observation (INO) | payer BC ==
[2017-12-31] MEDS ORDERED: ASPIRIN 81 MG TABLET, CHEWABLE ONE (05:38)
[2017-12-31] MEDS ORDERED: ASPIRIN 81 MG TABLET, CHEWABLE PO ONE (05:47)
[2017-12-31 06:01] LABS: ABSOLUTE EOSINOPHILS # (AUTO) 0.2 10^3/uL (0.0-0.6); ABSOLUTE LYMPHOCYTES (AUTO) 1.9 10^3/uL (0.5-4.7); ABSOLUTE MONOCYTES (AUTO) 0.5 10^3/uL (0.1-1.4); ABSOLUTE NEUT (AUTO) 3.3 10^3/uL (1.7-8.2); BASOPHILS % (AUTO) 0.8 % (0-2); EOSINOPHILS % (AUTO) 3.3 % (0-6); HEMOGLOBIN 15.1 g/dL (13.5-17.0); LYMPHOCYTES % (AUTO) 32.3 % (13-45); MEAN CORPUSCULAR HEMOGLOBIN 33.1 pg (27.0-33.4); MEAN CORPUSCULAR HGB CONC 35.1 g/dL (32.0-36.0); MEAN CORPUSCULAR VOLUME 94 fl (80-97); MONOCYTES % (AUTO) 7.8 % (3-13); PLATELET COUNT 250 10^3/uL (150-450); RED BLOOD COUNT 4.57 10^6/uL (4.35-5.55); RED CELL DISTRIBUTION WIDTH 13.6 % (11.5-14.0); SEGMENTED NEUTROPHILS % (AUTO) 55.8 % (42-78); TOTAL CELLS COUNTED % (AUTO) 100 %
[2017-12-31 06:12] LABS: ALANINE AMINOTRANSFERASE 38 U/L (21-72); ALBUMIN 4.3 g/dL (3.5-5.0); ALKALINE PHOSPHATASE 85 U/L (38-126); ANION GAP 15 (5-19); ASPARTATE AMINO TRANSFERASE 40 U/L (17-59); BILIRUBIN,DIRECT 0.3 mg/dL (0.0-0.4); BILIRUBIN,TOTAL 0.7 mg/dL (0.2-1.3); BLOOD UREA NITROGEN 9 mg/dL (7-20); CARBON DIOXIDE 22 mmol/L (22-30); CHLORIDE 107 mmol/L (98-107); CREATINE KINASE 225 U/L (55-170); GLUCOSE 88 mg/dL (75-110); POTASSIUM 4.5 mmol/L (3.6-5.0); SODIUM 143.7 mmol/L (137-145); TOTAL PROTEIN 7.8 g/dL (6.3-8.2)
[2017-12-31 06:23] LABS: CREATINE KINASE MB 1.98 ng/mL (<4.55)
[2017-12-31 06:24] LABS: TROPONIN I < 0.012 ng/mL
--- NOTE | 2017-12-31 06:26 | RADIOLOGY REPORT (SQ) ---
EXAM DESCRIPTION: XR CHEST 1 VIEW COMPLETED DATE/TME: 12/31/2017 05:47 EXAM DESCRIPTION: Single view of the chest CLINICAL HISTORY: chest pain COMPARISON: 08/30/2017 FINDINGS: Single frontal view of the chest. The cardiomediastinal silhouette has normal size and contour. No consolidation, pneumothorax, or pleural effusion. Leads overlie the chest. Hyperinflation No displaced rib fractures identified. Upper abdominal soft tissues are unremarkable. IMPRESSION: 1. No acute pulmonary process identified. Findings suggest obstructive lung disease.
--- NOTE | 2017-12-31 06:28 | ER Document Report ---
ED General - General Chief Complaint: Chest Pain Stated Complaint: CHEST PAIN Time Seen by Provider: 12/31/17 06:27 TRAVEL OUTSIDE OF THE [place] IN LAST 30 DAYS: No - HPI Notes: 57-year-old smoker presents with concerning story of left-sided crushing chest pain with radiation to his left neck, shoulder and left arm. This is been associated with nausea negative emesis. Pain is crushing in nature 8/10 constant since yesterday. Nothing has made the pain better or worse. Patient has a history of cardiac catheterization in the past which showed some diffuse disease but no focal area that requires stenting. Patient denies exercise intolerance states concerned it is in his heart. Patient denies all constitutional symptoms. Nothing is made the pain better or worse - Related Data Allergies/Adverse Reactions: meperidine HCl [From Demerol] Allergy (Intermediate, Verified 08/29/17 23:55) Hives Past Medical History - Social History Smoking Status: Current Every Day Smoker Chew tobacco use (# tins/day): No Frequency of alcohol use: Heavy Drug Abuse: None Family History: Reviewed & Not Pertinent Patient has suicidal ideation: No Patient has homicidal ideation: No - Past Medical History Cardiac Medical History: Reports: Hx Heart Attack, Hx Hypercholesterolemia, Hx Hypertension Pulmonary Medical History: Reports: Hx COPD Renal/ Medical History: Denies: Hx Peritoneal Dialysis Past Surgical History: Reports: Hx Appendectomy, Hx Orthopedic Surgery - left thumb; broken rib - Immunizations Immunizations up to date: No Hx Diphtheria, Pertussis, Tetanus Vaccination: Yes Review of Systems - Review of Systems Notes: REVIEW OF SYSTEMS: CONSTITUTIONAL: -fevers, -chills EENT: -eye pain, -difficulty swallowing, -nasal congestion CARDIOVASCULAR: + chest pain, -syncope. RESPIRATORY: -cough, -SOB GASTROINTESTINAL: -abdominal pain, +nausea, -vomiting, -diarrhea GENITOURINARY: -dysuria, -hematuria MUSCULOSKELETAL: -back pain, -neck pain SKIN: -rash or skin lesions. HEMATOLOGIC: -easy bruising or bleeding. LYMPHATIC: -swollen, enlarged glands. NEUROLOGICAL: -altered mental status or loss of consciousness, -headache, - neurologic symptoms PSYCHIATRIC: -anxiety, -depression. ALL OTHER SYSTEMS REVIEWED AND NEGATIVE. Physical Exam - Vital signs Vitals: Resp Pulse Ox 15 93 12/31/17 05:38 12/31/17 05:38 - Notes Notes: PHYSICAL EXAMINATION: GENERAL: Well-appearing, well-nourished and in no acute distress. HEAD: Atraumatic, normocephalic. EYES: Pupils equal round and reactive to light, extraocular movements intact, sclera anicteric, conjunctiva are normal. ENT: nares patent, oropharynx clear without exudates. Moist mucous membranes. NECK: Normal range of motion, supple without lymphadenopathy LUNGS: Breath sounds clear to auscultation bilaterally and equal. No wheezes rales or rhonchi. HEART: Regular rate and rhythm without murmurs ABDOMEN: Soft, nontender, normoactive bowel sounds. No guarding, no rebound. No masses appreciated. EXTREMITIES: Normal range of motion, no pitting or edema. No cyanosis. NEUROLOGICAL: Cranial nerves grossly intact. Normal speech, normal gait. Normal sensory and motor exams. PSYCH: Normal mood, normal affect. SKIN: Warm, Dry, normal turgor, no rashes or lesions noted. Course - Re-evaluation Re-evalutation: 12/31/17 07:41 57-year-old male tobacco abuser history of diffuse disease. Presents with concerning story of chest pain, possible angina. Patient's EKG has no new ischemic changes, initial troponin unremarkable, chest x-ray is no acute cardiopulmonary process. Reassuring physical exam. Patient has preserved kidney function. Patient will be admitted to the hospital for further evaluation of this possible cardiac chest pain versus unstable angina. - Vital Signs Vital signs: Temp Pulse Resp BP Pulse Ox 18 107/78 96 12/31/17 06:01 12/31/17 06:01 12/31/17 06:01 - Laboratory Result Diagrams: 12/31/17 05:40 12/31/17 05:40 Laboratory results interpreted by me: 12/31/17 05:40 Creatine Kinase 225 H - EKG Interpretation by Me Additional EKG results interpreted by me: 12/31/17 06:27 Normal sinus rhythm. No ST elevations or depressions no pathologic T-wave inversions. 61 bpm. Discharge - Discharge Clinical Impression: Chest pain Qualifiers: Chest pain type: unspecified Qualified Code(s): R07.9 - Chest pain, unspecified Condition: Stable Disposition: ADMITTED INPATIENT Admitting Provider: Hospitalist - Dr. Holman Referrals: LOCALMD,NO [Primary Care Provider] - Follow up as needed
[2017-12-31] MEDS ORDERED: FENTANYL CITRATE INJ/PF 100 MCG/2 ML AMPUL IV ONE (06:34)
[2017-12-31] MEDS ORDERED: ONDANSETRON HCL INJ/PF 4 MG/2 ML SDV IV ONE (06:35)
[2017-12-31] MEDS ORDERED: ONDANSETRON 4 MG TAB.RAPDIS PO ONE (08:03)
[2017-12-31] MEDS ORDERED: IPRATROPIUM/ALBUTEROL 0.5-2.5 MG/3 ML AMPUL NEB PRN (08:29)
[2017-12-31] MEDS ORDERED: ONDANSETRON HCL INJ/PF 4 MG/2 ML SDV IV PRN (08:29)
[2017-12-31] MEDS ORDERED: ACETAMINOPHEN 325 MG TABLET PO PRN (08:29)
[2017-12-31] MEDS ORDERED: DEXTROSE 40% GEL 15 GM TUBE PO PRN ×2 (08:52)
[2017-12-31] MEDS ORDERED: GLUCAGON,HUMAN RECOMB 1 MG INJ SUBCUT PRN (08:52)
[2017-12-31] MEDS ORDERED: DEXTROSE 50%-WATER 25 GM/50 ML DISP.SYRIN IV PRN ×2 (08:52)
[2017-12-31] MEDS: ENOXAPARIN SODIUM INJ 40 MG/0.4 ML DISP.SYRIN SUBCUT SCH (10:44)
[2017-12-31] MEDS ORDERED: NITROGLYCERIN 0.4 MG/TAB 25 TAB/BOTTLE SL PRN (15:17)
--- NOTE | 2017-12-31 16:31 | PDOC H&P ---
History of Present Illness Admission Date/PCP: 12/31/17 07:52 NO LOCALMD Patient complains of: Chest pain, ongoing since yesterday afternoon. History of Present Illness: CLAUDY CROWLEY is a 57 year old male who carries a diagnosis of known CAD. He states that he had a "small heart attack in April" for which he had a C. He states that his lesions and arteries were too small to be considered for PTCA. He was prescribed medical therapy. He states that although he was prescribed nitroglycerine, he has never taken, but always seeks medical attention when he has chest pain. 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 He states that he did not have increased dyspnea over his baseline dyspnea, but he did feel nausea. He did not have diaphoresis. The patient states that the pain has continued until this am. He states that it is still a 4-7 in severity. He continues to be nauseated, but denies shortness of breath. He states that the pain worsens with activity. Past Medical History Cardiac Medical History: Reports: Coronary Artery Disease, Myocardial Infarction , Hyperlipidema, Hypertension Denies: Congestive Heart Failure Pulmonary Medical History: Reports: Chronic Obstructive Pulmonary Disease (COPD) Denies: Asthma, Bronchitis, Pneumonia, Tuberculosis Neurological Medical History: Denies: Seizures Renal/ Medical History: Denies: End Stage Renal Disease GI Medical History: Denies: Cirrhosis, Gastroesophageal Reflux Disease Musculoskeltal Medical History: Denies: Arthritis Psychiatric Medical History: Denies: Bipolar Disorder, Depression Hematology: Denies: Anemia, Bleeding Tendencies Past Surgical History Past Surgical History: Reports: Appendectomy, Orthopedic Surgery - left thumb; broken rib Social History Smoking Status: Current Every Day Smoker Frequency of Alcohol Use: None Drugs: None - Advance Directive Resuscitation Status: Full Code Family History Family History: Reviewed & Not Pertinent Parental Family History Reviewed: Yes - CAD and hypertension on his mother's side. Children Family History Reviewed: No Sibling(s) Family History Reviewed.: Yes - Positive for CAD. Medication/Allergy Home Medications: Aspirin [Adult Low Dose Aspirin EC] 81 mg PO DAILY 12/31/17 Atorvastatin Calcium [Lipitor 80 mg Tablet] 80 mg PO QHS 12/31/17 Carvedilol [Coreg 6.25 mg Tablet] 6.25 mg PO Q12 12/31/17 Clopidogrel Bisulfate [Plavix 75 mg Tablet] 75 mg PO DAILY 12/31/17 Isosorbide Mononitrate [Imdur 30 mg Tablet.er] 15 mg PO QAM 12/31/17 Lisinopril [Zestril] 10 mg PO DAILY 12/31/17 Nitroglycerin [Nitrostat 0.4 mg (1/150 Gr) Tabs 25/Bottle] 0.4 mg SL Q5MP PRN Allergies/Adverse Reactions: meperidine HCl [From Demerol] Allergy (Intermediate, Verified 08/29/17 23:55) Hives Review of Systems Constitutional: PRESENT: fatigue. ABSENT: fever(s), night sweats, weight gain, weight loss Eyes: ABSENT: visual disturbances Ears: ABSENT: hearing changes Nose, Mouth, and Throat: ABSENT: headache(s), mouth pain, sore throat, vertigo Cardiovascular: PRESENT: chest pain - As described in HPI. Respiratory: PRESENT: dyspnea - Chronic. No worsening with chest pain. Gastrointestinal: PRESENT: nausea. ABSENT: coffee ground emesis, constipation, diarrhea, dysphagia, heartburn, melena, vomiting Genitourinary: ABSENT: difficulty urinating, hematuria Musculoskeletal: ABSENT: back pain, deformity, muscle weakness Integumentary: ABSENT: diaphoresis, lesions, rash, wounds Neurological: ABSENT: abnormal gait, abnormal speech, confusion, dizziness, frequent falls, lack of coordination, paresthesias, syncope, tremor(s) Psychiatric: ABSENT: anxiety, depression Endocrine: ABSENT: cold intolerance, heat intolerance, polydipsia, polyphagia Hematologic/Lymphatic: ABSENT: easy bleeding, easy bruising, lymphadenopathy Physical Exam Vital Signs: Temp Pulse Resp BP Pulse Ox 51 L 16 121/70 97 12/31/17 10:30 12/31/17 10:30 12/31/17 09:01 12/31/17 10:30 Intake & Output 12/30/17 12/31/17 01/01/18 06:59 06:59 06:59 Weight 67.5 kg General appearance: PRESENT: cooperative, mild distress, well-developed, well- nourished Head exam: PRESENT: atraumatic, normocephalic Eye exam: PRESENT: EOMI, PERRLA, other - No scleral injection.. ABSENT: scleral icterus Ear exam: PRESENT: normal external ear exam Mouth exam: PRESENT: moist, neck supple, tongue midline Throat exam: ABSENT: post pharyngeal erythema, tonsillar erythema, tonsillar exudate Neck exam: ABSENT: carotid bruit, JVD, lymphadenopathy, meningismus, tenderness , thyromegaly Respiratory exam: PRESENT: decreased breath sounds, prolonged expiratory phas, symmetrical, other - No increased work of breathing. No wheezes, rales, or rhonchi. No tactile fremitus.. ABSENT: chest wall tenderness, crackles, rales, rhonchi, wheezes Cardiovascular exam: PRESENT: RRR, +S2. ABSENT: bradycardia, gallop, irregular rhythm, rubs, systolic murmur Pulses: PRESENT: normal carotid pulses, normal femoral pulses Vascular exam: PRESENT: normal capillary refill GI/Abdominal exam: PRESENT: normal bowel sounds, soft. ABSENT: ascites, guarding, hernia, mass, organolmegaly, tenderness Extremities exam: PRESENT: full ROM. ABSENT: calf tenderness, joint swelling, pedal edema Musculoskeletal exam: PRESENT: ambulatory. ABSENT: deformity, dislocation Neurological exam: PRESENT: alert, awake, oriented to person, oriented to place , oriented to time, oriented to situation, CN II-XII grossly intact, normal gait. ABSENT: motor sensory deficit Psychiatric exam: PRESENT: appropriate affect, normal mood Skin exam: PRESENT: dry, intact, warm Results Laboratory Results: 12/31/17 11:08 Troponin I < 0.012 Impressions: Chest X-Ray 12/31/17 05:47 IMPRESSION: 1. No acute pulmonary process identified. Findings suggest obstructive lung disease. Assessment & Plan - Diagnosis (1) CAD (coronary artery disease) Qualifiers: Coronary Disease-Associated Artery/Lesion type: [place] artery [place] vs. transplanted heart: [place] heart Associated angina: with unspecified angina Qualified Code(s): I25.119 - Atherosclerotic heart disease of [place] coronary artery with unspecified angina pectoris Is this a current diagnosis for this admission?: Yes Plan: Rule out [place] by EKG and enzyme criteria. Stress test in the am. (2) Hypertension Qualifiers: Hypertension type: essential hypertension Qualified Code(s): I10 - Essential (primary) hypertension Is this a current diagnosis for this admission?: Yes Plan: Continue home antihypertensives. Hold beta blockers for stress in the am. (3) Hyperlipidemia Qualifiers: Hyperlipidemia type: mixed hyperlipidemia Qualified Code(s): E78.2 - Mixed hyperlipidemia Is this a current diagnosis for this admission?: Yes Plan: Continue statin (4) Nausea Is this a current diagnosis for this admission?: Yes Plan: Zofran prn. PPI. - Time Time Spent: 50 to 70 Minutes Medications reviewed and adjusted accordingly: Yes Anticipated discharge: Home Within: within 24 hours
[2017-12-31] MEDS: CARVEDILOL 6.25 MG TABLET PO SCH (21:29)
--- NOTE | 2017-12-31 21:29 | EKG REPORT ---
SEVERITY:- ABNORMAL ECG - SINUS RHYTHM BORDERLINE T ABNORMALITIES, INFERIOR LEADS : Confirmed by: Cecilia Lemos MD 31-Dec-2017 21:28:42
--- NOTE | 2017-12-31 21:29 | EKG REPORT ---
SEVERITY:- BORDERLINE ECG - SINUS RHYTHM BORDERLINE T WAVE ABNORMALITIES : Confirmed by: Cecilia Lemos MD 31-Dec-2017 21:28:13
[2017-12-31] MEDS ORDERED: ATORVASTATIN CALCIUM 80 MG TABLET PO SCH (22:00)
[2018-01-01 06:05] LABS: ANION GAP 12 (5-19); BLOOD UREA NITROGEN 14 mg/dL (7-20); CARBON DIOXIDE 25 mmol/L (22-30); CHLORIDE 104 mmol/L (98-107); GLUCOSE 82 mg/dL (75-110); POTASSIUM 4.6 mmol/L (3.6-5.0); SODIUM 140.7 mmol/L (137-145)
[2018-01-01] MEDS ORDERED: ISOSORBIDE MONONITRATE 30 MG TAB.ER.24H PO SCH (08:00)
[2018-01-01] MEDS ORDERED: ASPIRIN 81 MG TABLET, ENT COATED PO SCH (10:00)
[2018-01-01] MEDS ORDERED: LISINOPRIL 10 MG TABLET PO SCH (10:00)
[2018-01-01] MEDS ORDERED: CLOPIDOGREL BISULFATE 75 MG TABLET PO SCH (10:00)
[2018-01-01] MEDS: CARVEDILOL 6.25 MG TABLET PO SCH (11:59)
[2018-01-01 12:07] VITALS: BP 136/87
[2018-01-01] MEDS: ENOXAPARIN SODIUM INJ 40 MG/0.4 ML DISP.SYRIN SUBCUT SCH (12:10)
[2018-01-01] MEDS ORDERED: ISOSORBIDE MONONITRATE 30 MG TAB.ER.24H PO ONE (13:15)
[2018-01-01] MEDS ORDERED: RANOLAZINE 500 MG TAB.SR.12H PO ONE (13:45)
--- NOTE | 2018-01-01 15:27 | PDOC DISCHARGE SUMMARY ---
General - Admit/Disc Date/PCP Admission Date/Primary Care Provider: 12/31/17 07:52 NO LOCALMD Discharge Date: 01/01/18 - Discharge Diagnosis (1) CAD (coronary artery disease) Is this a current diagnosis for this admission?: Yes (2) Hypertension Is this a current diagnosis for this admission?: Yes (3) Hyperlipidemia Is this a current diagnosis for this admission?: Yes (4) Nausea Is this a current diagnosis for this admission?: Yes - Additional Information Resuscitation Status: Full Code Discharge Diet: Cardiac Discharge Activity: Activity As Tolerated Prescriptions: Isosorbide Mononitrate [Imdur 30 mg Tablet.er] 30 mg PO QAM #30 tab.er.24h Ranolazine [Ranexa 500 mg Tab.sr] 500 mg PO Q12 #60 tab.sr.12h Ticagrelor [Brilinta 90 mg Tablet] 90 mg PO BID #60 tablet Home Medications: Aspirin [Adult Low Dose Aspirin EC] 81 mg PO DAILY 12/31/17 Atorvastatin Calcium [Lipitor 80 mg Tablet] 80 mg PO QHS 12/31/17 Carvedilol [Coreg 6.25 mg Tablet] 6.25 mg PO Q12 12/31/17 Lisinopril [Zestril] 10 mg PO DAILY 12/31/17 Nitroglycerin [Nitrostat 0.4 mg (1/150 Gr) Tabs 25/Bottle] 0.4 mg SL Q5MP PRN Isosorbide Mononitrate [Imdur 30 mg Tablet.er] 30 mg PO QAM #30 tab.er.24h 01/01 Ranolazine [Ranexa 500 mg Tab.sr] 500 mg PO Q12 #60 tab.sr.12h 01/01/18 Ticagrelor [Brilinta 90 mg Tablet] 90 mg PO BID #60 tablet 01/01/18 History of Present Illness Patient complains of: No new complaints. History of Present Illness: CLAUDY CROWLEY is a 57 year old male who carries a diagnosis of known CAD. He states that he had a "small heart attack in April" for which he had a [facility]. He states that his lesions and arteries were too small to be considered for PTCA. He was prescribed medical therapy. He states that although he was prescribed nitroglycerine, he has never taken, but always seeks medical attention when he has chest pain. 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 He states that he did not have increased dyspnea over his baseline dyspnea, but he did feel nausea. He did not have diaphoresis. The patient states that the pain has continued until this am. He states that it is still a 4-7 in severity. He continues to be nauseated, but denies shortness of breath. He states that the pain worsens with activity. Hospital Course Hospital Course: The patient was admitted to a telemetry bed. Records obtained from the patient' s admission last year to the [facility] system. He was diagnosed with an NJ. C wasa performed the patient was found to have such significant calcifications that he was not a candidate for PTCA. Here the patient was ruled out for NJ by EKG and enzyme criteria. Dr. Benton was consulted for cardiology. He has increased the patient's imdur, added ranexa and brillinta to the patient's regimen. I have discontinued the patient's plavis. he was discharged to home in good condition. He will follow up with Dr. Benton as oupatient. Physical Exam Vital Signs: Temp Pulse Resp BP Pulse Ox 98.2 F 50 L 14 136/87 H 98 01/01/18 13:46 01/01/18 13:46 01/01/18 13:46 01/01/18 11:18 01/01/18 13:46 Intake & Output 12/31/17 01/01/18 01/02/18 06:59 06:59 06:59 Intake Total 1206 Balance 1206 Weight 64.8 kg General appearance: PRESENT: no acute distress, well-developed, well-nourished Head exam: PRESENT: atraumatic, normocephalic Neck exam: ABSENT: carotid bruit, JVD, lymphadenopathy, thyromegaly Respiratory exam: PRESENT: other - No increased work of breathing. No wheezes, rales, or rhonchi. No tactile fremitus.. ABSENT: rales, rhonchi, wheezes Cardiovascular exam: PRESENT: RRR. ABSENT: diastolic murmur, rubs, systolic murmur Pulses: PRESENT: normal dorsalis pedis pul Vascular exam: PRESENT: normal capillary refill GI/Abdominal exam: PRESENT: normal bowel sounds, soft. ABSENT: distended, guarding, mass, organolmegaly, rebound, tenderness Rectal exam: PRESENT: deferred Extremities exam: PRESENT: full ROM. ABSENT: calf tenderness, clubbing, pedal edema Neurological exam: PRESENT: alert, awake, oriented to person, oriented to place , oriented to time, CN II-XII grossly intact, motor sensory deficit Psychiatric exam: PRESENT: appropriate affect, normal mood. ABSENT: homicidal ideation, suicidal ideation Skin exam: PRESENT: dry, intact, warm. ABSENT: cyanosis, rash Results Laboratory Results: 01/01/18 04:44 01/01/18 04:44 Sodium 140.7 Potassium 4.6 Chloride 104 Carbon Dioxide 25 Anion Gap 12 BUN 14 Creatinine 0.80 Est GFR ( Amer) > 60 Est GFR (Non-Af Amer) > 60 Glucose 82 Calcium 9.0 12/31/17 12/31/17 11:08 17:08 Troponin I < 0.012 0.015 Impressions: Chest X-Ray 12/31/17 05:47 IMPRESSION: 1. No acute pulmonary process identified. Findings suggest obstructive lung disease. Qualifiers - * PATIENT BEING DISCHARGED WITH ANY OF THE FOLLOWING DIAGNOSIS: No Plan Discharge Plan: The patient will be discharged to home in good condition. Time Spent: Greater than 30 Minutes
[2018-01-01] MEDS ORDERED: TICAGRELOR 90 MG TABLET PO SCH (18:00)
--- NOTE | 2018-01-01 20:30 | EKG REPORT ---
SEVERITY:- BORDERLINE ECG - SINUS RHYTHM VENTRICULAR PREMATURE COMPLEX BORDERLINE T ABNORMALITIES, INFERIOR LEADS : Confirmed by: Cecilia Lemos MD 01-Jan-2018 20:30:07
[2018-01-01] MEDS ORDERED: RANOLAZINE 500 MG TAB.SR.12H PO SCH (22:00)
--- NOTE | 2018-01-02 01:11 | CONSULTATION REPORT E ---
Consultation Report NAME: CLAUDY CROWLEY : 1960 AGE: 57Y DATE: 01/01/2018 ROOM: 528 A TO: CHELA DEVINE M.D. FROM: Cash BONILLA, Requesting Physician Time of seeing the patient is 11:45 a.m. REASON FOR CONSULTATION: Chest and left arm pain in a patient with known coronary artery disease. HISTORY OF PRESENT ILLNESS: The patient is a 57-year-old male who has a history of coronary artery disease, old myocardial infarction who states that yesterday at rest he had a tingling and pain in the left arm which went into his chest with tingling in the chest. This lasted for about 12 hours. It did not increase when the patient walked around or exerted himself. It spontaneously relieved after 12 hours. The patient did not know how to take nitroglycerin but the nitroglycerin given in the ER did not help him. He states that this is different from his pain when he had the myocardial infarction. There was no palpitation, PND, orthopnea, or shortness of breath. There is no leg edema. There are no TIA or CVA symptoms. PAST MEDICAL HISTORY: Positive for history of hypertension. He also has a history of coronary artery disease. He has had a history of myocardial infarction x2. The last one was in 08/2017. In 04/2017, he had a non-ST elevation DE and he went to [facility] by transfer and had a cardiac catheterization. This showed a heavily calcified left anterior descending artery with no significant stenosis. There was a diagonal branch which had an ostial 70% lesion which was heavily calcified. The circumflex and the right coronary artery did not have any problems. In view of the calcification of the ostial LAD where the stenosis was, it was deemed that the patient would be high risk for percutaneous intervention since that section may back track into the left main, hence he was treated medically. At that time he has postural lateral hypokinesis of the left ventricle by echo with an ejection fraction of 40%. Also one of the factors which made them not to do a percutaneous intervention was that the patient had a history of alcohol usage in the form of 6 beers a day and also the patient was a smoker. His anginal symptoms are more like chest pressure which increases with exertion with nausea and diaphoresis and, hence, the current admission pain is entirely different and clearly noncardiac, since after 12 hours the patient's EKG does not show any acute changes and there is no elevation of biomarkers suggestive of myocardial infarction. He has a history of hyperlipidemia. He also carries a diagnosis of COPD. There is no history of TIA or CVA. There is no history of congestive heart failure. There is no history of diabetes mellitus or thyroid disease. There is no history of TIA or CVA. No history of seizures. ALLERGIES: The patient is allergic to MORPHINE. The patient is allergic to DEMEROL. PAST SURGICAL HISTORY: Positive for appendectomy and cardiac catheterization x2. FAMILY HISTORY: Positive for coronary artery disease in his father. ADVANCE DIRECTIVES: The patient is a full code. His is the surrogate healthcare decision maker. SOCIAL HISTORY: The patient has smoked for a long time, at least a pack and a half cigarettes per day. He also drinks 6 beers a day, but has promised me that he cut down and stop it all together. MEDICATIONS: 1. He had received aspirin 324 mg x1 and also aspirin 81 mg p.o. x1. 2. Fentanyl citrate 50 mcg IV x1. 3. Zofran 4 mg IV x1. 4. Acetaminophen 650 mg p.o. q.4 hours p.r.n. 5. DuoNeb nebulizer treatment q.6 hours p.r.n. 6. Zofran 4 mg IV q.6 hours p.r.n. 7. Hypoglycemic precautions with glutose 40% gel, 15 grams and 30 grams p.o. respectively p.r.n. 8. Dextrose 50%, 12.5 grams and 25 grams IV p.r.n. hypoglycemia. 9. Glucagon 1 mg subcutaneously p.r.n. hypoglycemia. 10. Lovenox 40 mg subcutaneously daily. 11. Nitroglycerin 1 tablet sublingually q.5 minutes p.r.n. 12. Atorvastatin 80 mg p.o. at bedtime. 13. Coreg 6.25 mg p.o. q.12 hours. 14. Isosorbide mononitrate 15 mg p.o. a.m. 15. Aspirin 81 mg p.o. daily. 16. Plavix 75 mg p.o. daily. 17. Lisinopril 30 mg p.o. daily. REVIEW OF SYSTEMS: CONSTITUTIONAL: Denies any fever, chills, or rigors. Denies any generalized fatigue or weakness. HEAD: Denies headaches or head injury. EYES: No history of amblyopia or diplopia. No history of amaurosis fugax. EARS: No history of hearing loss. No history of tinnitus. No history of recurrent ear infections. NOSE: No history of nasal polyps. No history of nosebleeds. No history of hay fever. MOUTH: No altered taste sensation. No ulcers in the mouth. No bleeding from the gums. THROAT: No odynophagia or dysphagia. No recurrent sore throats. SKIN: No pruritus. No eczema or psoriasis. No yellowish discoloration of the skin. LUNGS: The patient does carry a diagnosis of COPD and he uses Symbicort inhaler p.r.n. at home. No recent symptoms of acute exacerbation of COPD. No cough or sputum production or wheezing. No history of sleep apnea. No history of pulmonary embolism. No history of pleuritic chest pain. No history of hemoptysis. CARDIAC: History of hypertension as mentioned early. History of coronary artery disease, old DE. History of DE during which he had chest pain which is different from what he is admitted today. The patient claims that he has not had any angina and he is pretty active. No history of leg edema. He does have a diagnosis of cardiomyopathy with an LV ejection fraction of 40% with posterolateral hypokinesis by echo of 04/2017. He denies any symptom of heart failure. There is no PND, orthopnea, leg edema, palpitations, or cardiac arrhythmia. No history of rheumatic fever or congenital heart disease. No history of syncope. GASTROINTESTINAL: No history of GERD. No history of jaundice. No fatty food intolerance. No history of cirrhosis. No history of abdominal pain. No history of GI bleed. MUSCULOSKELETAL: Denies arthritis or collagen vascular disease. ENDOCRINE: No history of diabetes mellitus. No history of thyroid disease. No history of polydipsia or polyuria. No history of heat or cold intolerance. RENAL: No history of chronic kidney disease. No symptoms of enlarged prostate. No hematuria, pyuria, or dysuria. No symptoms of UTI. CENTRAL NERVOUS SYSTEM: No history of TIA or CVA. No history of headaches, migraines, or seizures. No gait imbalance. PSYCHIATRIC: No history of anxiety or depression. No history of suicidal ideation. No history of homicidal ideation. METABOLIC: History of hyperlipidemia present. There is no history of gout. VASCULAR: No history of calf or buttock claudication. No history of DVT. HEMATOLOGICAL: No history of bleeding diathesis, no history of clotting disorder. The patient has no contraindications for antiplatelet agents such as a combination of aspirin and Brilinta. PHYSICAL EXAMINATION: GENERAL: On examination the patient is well-built and well-nourished, in no acute distress. VITAL SIGNS: He is afebrile with a temperature of 98.2 degrees Fahrenheit, his pulse is 50 beats per minute sinus bradycardia, blood pressure is 134/87, respirations are 16 per minute, O2 saturations are 98% on room air. HEENT: Head is atraumatic, normocephalic. Eyes: Pupils are equal, round and regular, reactive to light and accommodation. Extraocular movements are normal. There is no conjunctival pallor. There is no scleral icterus. Ears: Tympanic membranes are intact, external auditory canals are clear. Nose: There is no deviated nasal septum. There is no inflammation of the nasal mucous membrane. Mouth: Mucous membranes of the mouth are moist. Tongue is moist. There are no ulcers. There is no bleeding from the gums. Throat: There is no redness of the oropharynx. There are no exudates. SKIN: There is no skin rashes. There are no skin lesions. There is no petechiae or ecchymosis. NECK: Supple. There is no JVD. There is no lymphadenopathy. There is no goiter. Carotids are equal. There is no bruit. Trachea is central. LUNGS: Show diminished air entry and prolonged expiration without any rhonchi, rales, or wheezing on auscultation. On percussion there is hyperresonance throughout. On palpation there is really no chest wall tenderness. HEART: S1, S2 is heard. There is no S3 gallop. There is no S4 gallop. There is a systolic murmur in the left sternal border and the apex. There is no rub. ABDOMEN: Soft, nontender. There is no hepatosplenomegaly. Bowel sounds are well heard. There are no tender areas or masses. There is no rebound, guarding, or rigidity. EXTREMITIES: Femorals are well felt. There is no femoral bruit. Leg pulses are well felt. There is no pedal edema. There is no cyanosis or clubbing. There is no DVT or cellulitis. There is no calf tenderness. CENTRAL NERVOUS SYSTEM: The patient is conscious, awake, alert and oriented x3 with no focal deficits. PSYCHIATRIC: The patient's judgment and insight are intact. His affect is normal. DIAGNOSTIC STUDIES: The patient's electrocardiogram done on admission yesterday, that is 12/31/17, shows sinus rhythm, borderline T abnormality nondiagnostic inferior leads. His EKG today shows sinus rhythm with a PVC, borderline nonspecific T abnormality in the inferior leads. The rhythm is sinus bradycardia. The patient's chest x-ray shows no acute cardiopulmonary process identified. Findings suggest obstructive lung disease. The patient's white count is 6000, hemoglobin is 15.1, hematocrit is 43.0, and his platelet count is 250,000. The patient's sodium s 140.7, potassium 4.6, chloride is 104, CO2 is 25. The patient's BUN is 14, creatinine is 0.80, GFR is greater than 60. His glucose is 82, his calcium is 9.0. His liver function tests are normal. His troponin I is negative x3 serially. His total protein is 7.8, albumin is 4.3. IMPRESSION: 1. Left-sided chest pain and left arm pain, noncardiac. Note no acute EKG changes and no evidence of myocardial infarction by cardiac biomarkers. 2. Coronary artery disease. 3. History of old myocardial infarction. 4. History of calcified ostial 75% lesion in the diagonal, thought to be high risk for percutaneous intervention. 5. Cardiomyopathy with an echo LV ejection fraction of 40%. The patient does not remember having another follow up echo. The patient is asymptomatic. There is no evidence of congestive heart failure. 6. COPD without exacerbation. 7. Hyperlipidemia. 8. History of tobacco abuse. 9. History of alcohol over usage. RECOMMENDATIONS: In view of the patient's coronary artery disease which is high risk for percutaneous intervention would recommend stopping the patient's Plavix, continue the patient's aspirin at 81 mg p.o. daily and also placing the patient on Brilinta 90 mg p.o. b.i.d. I have discussed that the patient needs to completely stop his alcohol in view of these medications being placed since he would be at high risk for bleeding. The patient states that he will stop. Also 3 minutes of counseling given for tobacco cessation (tobacco cessation counseling given). We will increase the patient's isosorbide mononitrate to 30 mg p.o. daily and also Ranexa 500 mg p.o. b.i.d. Note medical decision making is of high complexity. Also the patient and his state that he did not know when to take the nitroglycerin. I have explained to him that when he has his chest pains he should sit down and take a nitroglycerin sublingually and wait for 5 minutes to see if the pain will resolve. If it does not or if it decreases then he should take a second one after 5 minutes and after 5 minutes a third one if still symptoms persist. But I told him that if he has to take 2 or more nitroglycerin he needs to call 911 to be evaluated for transfer to the emergency room at [place]. TIME SPENT: Note 60 minutes on this patient including getting his records from [facility] and also reviewing the patient's old records such as ER admissions here. More than 50% of the time was spent on direct patient care. I have discussed with the patient and the patient's , they have my cell phone number. They desire to change and follow up with me. As an outpatient we will get an echocardiogram to see what the patient's LV ejection fraction is with respect to his cardiomyopathy. Also would continue the patient's lisinopril and the patient's beta kael. In spite of the patient being bradycardic the patient has no symptoms and his blood pressure is stable. Also we will check the patient's lipid levels as an outpatient. Also later we will schedule the patient for an IV Lexiscan Cardiolite stress test. This has been discussed at length with the patient. The patient is a full code. His is the surrogate healthcare decision maker. Discussed with the hospitalist taking care of the patient. The patient is stable and can be discharged home. The patient and his have my cell phone number and they call me if there are any problems. Will follow the patient as an outpatient. DICTATING PHYSICIAN: CHELA DEVINE M.D. [id number] PHY#: [id number] ID: [id number] JOB#: [id number] ACCT: [id number] cc:CHELA DEVINE M.D. >
[2018-01-02] MEDS ORDERED: ISOSORBIDE MONONITRATE 30 MG TAB.ER.24H PO SCH (08:00)
== END 2018-01-01 14:26 | disposition home or self-care (01) ==
LOC: ER 05:30 → EH 07:52 → INTOOBSV 07:52 → 4S 10:05 → 5 01-01 12:24
PROVIDERS: ADMIT Internal Medicine; ATTEND Internal Medicine
DX: I25.119 Atherosclerotic heart disease of native coronary artery with unspecified angina pectoris (principal); I10 Essential (primary) hypertension; E78.2 Mixed hyperlipidemia; R11.0 Nausea; R06.00 Dyspnea, unspecified; M79.602 Pain in left arm; R20.2 Paresthesia of skin; J44.9 Chronic obstructive pulmonary disease, unspecified; I25.2 Old myocardial infarction; F17.210 Nicotine dependence, cigarettes, uncomplicated; I42.9 Cardiomyopathy, unspecified; R00.1 Bradycardia, unspecified; R01.1 Cardiac murmur, unspecified; R07.89 Other chest pain; R53.83 Other fatigue; Z79.82 Long term (current) use of aspirin; Z79.899 Other long term (current) drug therapy; Z82.49 Family history of ischemic heart disease and other diseases of the circulatory system; Z90.49 Acquired absence of other specified parts of digestive tract; Z79.51 Long term (current) use of inhaled steroids
CPT/HCPCS: 93005 ×3; 99285; 36415 ×2; 82553; 82550; 85025; 80048; 80053; 84484; 71045; 93010 ×2; S0119; J3010; J1650 ×2

== ENCOUNTER 2018-01-25 22:11 | Observation (INO) | payer BC ==
[2018-01-25] MEDS ORDERED: ASPIRIN 81 MG TABLET, CHEWABLE PO ONE (22:17)
--- NOTE | 2018-01-25 22:34 | ER Document Report ---
ED General - General Chief Complaint: Chest Pain Stated Complaint: CHEST PAIN Time Seen by Provider: 01/25/18 22:30 Notes: Patient is a pleasant 58-year-old male who presents with complaint of chest pain. Patient says that he has a pressure type sensation in his chest that feels somewhat indigestion. Is mainly substernal and just left of substernal. Says it started tonight when he was lying down. He had meat loaf for dinner. Some nausea. No vomiting. Patient says that he does have history of coronary disease. In April 2017 he had a heart cath at [facility] that did show some coronary lesions however he was not a candidate for attention. He will return to our last month. He is stopped Plavix and was placed on Brilinta. Patient's is been unable to afford Brilinta. He has a follow-up appointment with Dr. Lemos the . He says he supposed to get free samples of the medication at that time. She continues to smoke. Continues to drink alcohol every day. He has no other complaints this time. Did take 1 nitro at home which did not relieve his symptoms. TRAVEL OUTSIDE OF THE [place] IN LAST 30 DAYS: No - Related Data Allergies/Adverse Reactions: meperidine HCl [From Demerol] Allergy (Intermediate, Verified 08/29/17 23:55) Hives Past Medical History - Social History Smoking Status: Current Every Day Smoker Frequency of alcohol use: Heavy Drug Abuse: None Family History: Reviewed & Not Pertinent - Past Medical History Cardiac Medical History: Reports: Hx Coronary Artery Disease, Hx Heart Attack, Hx Hypercholesterolemia, Hx Hypertension Denies: Hx Congestive Heart Failure Pulmonary Medical History: Reports: Hx COPD Denies: Hx Asthma, Hx Bronchitis, Hx Pneumonia, Hx Tuberculosis Neurological Medical History: Denies: Hx Seizures Renal/ Medical History: Denies: Hx Benign Prostatic Hyperplasia, Hx End Stage Renal Disease, Hx Kidney Stones, Hx Peritoneal Dialysis GI Medical History: Denies: Hx Cirrhosis, Hx Gastroesophageal Reflux Disease, Hx Ulcer Musculoskeletal Medical History: Denies Hx Arthritis, Denies Hx Multiple Sclerosis Psychiatric Medical History: Denies: Hx Bipolar Disorder, Hx Depression, Hx Schizophrenia Past Surgical History: Reports: Hx Appendectomy, Hx Orthopedic Surgery - left thumb; broken rib - Immunizations Immunizations up to date: No Hx Diphtheria, Pertussis, Tetanus Vaccination: Yes Review of Systems - Review of Systems Notes: My Normal Review Basic REVIEW OF SYSTEMS: CONSTITUTIONAL : Denies fever, chills, or sweats. Denies recent illness. EENT: Denies eye, ear, throat, or mouth pain or symptoms. Denies nasal or sinus congestion. CARDIOVASCULAR: Has chest pain RESPIRATORY: Denies cough, cold, or chest congestion. Denies shortness of breath, difficulty breathing, or wheezing. GASTROINTESTINAL: Denies abdominal pain. Denies nausea, vomiting, or diarrhea. Denies constipation. Last BM: MUSCULOSKELETAL: Denies neck or back pain or joint pain or swelling. SKIN: Denies rash or skin lesions. NEUROLOGICAL: Denies altered mental status or loss of consciousness. Denies headache. Denies weakness or paralysis or loss of use of either side. Denies problems with gait or speech. Denies sensory or motor loss. ALL OTHER SYSTEMS REVIEWED AND NEGATIVE. Physical Exam - Vital signs Vitals: Pulse Ox 82 L 01/25/18 22:30 - Notes Notes: General Appearance: Well nourished, alert, cooperative, no acute distress, no obvious discomfort. Vitals: reviewed, See vital signs table. Head: no swelling or tenderness to the head Eyes: PERRL, EOMI, Conjuctiva clear Mouth: No decreasd moisture Throat: No tonsillar inflammation, No airway obstruction Neck: Supple, no neck tenderness Lungs: No wheezing, No rales, No rhonci, No accessory muscle use, good air exchange bilaterally. Heart: Normal rate, Regular rythm, No murmur, no rub Abdomen: Normal BS, soft, No rigidity, No abdominal tenderness, No guarding, no rebound, no abdominal masses, no organomegaly Extremities: strength 5/5 in all extremities, good pulses in all extremities, no swelling or tenderness in the extremities, no edema. Skin: warm, dry, appropriate color, no rash Neuro: speech clear, oriented x 3, normal affect, responds appropriately to questions. Course - Re-evaluation Re-evalutation: 01/26/18 01:02 When I walk in the room patient is sleeping comfortably. I wake him up and asked him how his chest pressure is. Patient says it is about the same. I will order a repeat troponin. Once of the results of this and will call his quantitative analyst developer, Dr. Lemos. 01/26/18 01:[address] Lemos. He says that if the patient's repeat troponin remains negative then to admit the patient here is observation he will see the patient tomorrow and determine what further actions need to be done. 01/26/18 02:56 His troponin is negative. Patient did not receive Nitropaste because systolically his blood pressure is staying on the low 100s. I did speak with the hospitalist request to give him a small IV fluid bolus. He will come evaluate the patient for admission. Dictation of this chart was performed using voice recognition software; therefore, there may be some unintended grammatical errors. 01/26/18 02:56 - Vital Signs Vital signs: Temp Pulse Resp BP Pulse Ox 18 104/77 94 01/26/18 01:30 01/26/18 01:01 01/26/18 01:30 - Laboratory Result Diagrams: 01/25/18 22:55 01/25/18 22:55 Laboratory results interpreted by me: 01/25/18 01/25/18 22:55 22:55 RBC 4.20 L Creatine Kinase 240 H - EKG Interpretation by Me Additional EKG results interpreted by me: 01/25/18 22:33 EKG is reviewed and interpreted by me. EKG shows sinus rhythm with ventricular bigeminy. No ST segment elevation depression or elevation. MI interval, QRS duration, QTc intervals are within normal range. EKG for comparison is from January 01, 2018. 01/26/18 00:16 EKG #2 is reviewed and interpreted by me. EKG shows sinus rhythm with rate 57 bpm. One single PVC. No ST segment elevation or depression that is new in comparison to his old EKG. MI interval, QRS duration, QTc intervals are within normal range. 01/26/18 00:31 Discharge - Discharge Clinical Impression: Chest pain Qualifiers: Chest pain type: unspecified Qualified Code(s): R07.9 - Chest pain, unspecified Condition: Stable Disposition: ADMITTED OBSERVATION Admitting Provider: Hospitalist Unit Admitted: Telemetry Referrals: JACKLYN,NO [NO LOCAL MD] - Follow up as needed
[2018-01-25] MEDS ORDERED: METOCLOPRAMIDE HCL ORAL SOLN 10 MG/10 ML UDCUP PO ONE (22:39)
[2018-01-25] MEDS ORDERED: MAG HYDROX/AL HYDROX/SIMETH SUSP 30 ML UDCUP PO ONE (22:39)
[2018-01-25] MEDS ORDERED: LIDOCAINE 2% VISCOUS SOLN 20 ML UDCUP PO ONE (22:39)
--- NOTE | 2018-01-25 23:02 | RADIOLOGY REPORT (SQ) ---
EXAM DESCRIPTION: XR CHEST 1 VIEW COMPLETED DATE/TME: 01/25/2018 22:17 CLINICAL HISTORY: 58 years Male, cp COMPARISON: 7.11.18 NUMBER OF VIEWS/TECHNIQUE: 1/AP FINDINGS: Increased emphysematous lung volume, clear parenchyma, normal cardiac silhouette, and intact bony thorax. IMPRESSION: No acute cardiopulmonary findings.
[2018-01-25 23:08] LABS: ABSOLUTE EOSINOPHILS # (AUTO) 0.2 10^3/uL (0.0-0.6); ABSOLUTE LYMPHOCYTES (AUTO) 2.3 10^3/uL (0.5-4.7); ABSOLUTE MONOCYTES (AUTO) 0.7 10^3/uL (0.1-1.4); ABSOLUTE NEUT (AUTO) 4.7 10^3/uL (1.7-8.2); BASOPHILS % (AUTO) 0.1 % (0-2); EOSINOPHILS % (AUTO) 2.9 % (0-6); HEMOGLOBIN 13.8 g/dL (13.5-17.0); LYMPHOCYTES % (AUTO) 28.8 % (13-45); MEAN CORPUSCULAR HEMOGLOBIN 32.9 pg (27.0-33.4); MEAN CORPUSCULAR HGB CONC 34.6 g/dL (32.0-36.0); MEAN CORPUSCULAR VOLUME 95 fl (80-97); MONOCYTES % (AUTO) 8.8 % (3-13); PLATELET COUNT 238 10^3/uL (150-450); RED CELL DISTRIBUTION WIDTH 13.3 % (11.5-14.0); SEGMENTED NEUTROPHILS % (AUTO) 59.4 % (42-78); TOTAL CELLS COUNTED % (AUTO) 100 %; WHITE BLOOD COUNT 7.9 10^3/uL (4.0-10.5)
[2018-01-25 23:24] LABS: ALANINE AMINOTRANSFERASE 30 U/L (21-72); ALBUMIN 3.6 g/dL (3.5-5.0); ALKALINE PHOSPHATASE 82 U/L (38-126); ANION GAP 12 (5-19); ASPARTATE AMINO TRANSFERASE 31 U/L (17-59); BILIRUBIN,DIRECT 0.2 mg/dL (0.0-0.4); BILIRUBIN,TOTAL 0.4 mg/dL (0.2-1.3); BLOOD UREA NITROGEN 10 mg/dL (7-20); CALCIUM 8.5 mg/dL (8.4-10.2); CARBON DIOXIDE 22 mmol/L (22-30); CHLORIDE 107 mmol/L (98-107); CREATINE KINASE 240 U/L (55-170); GLUCOSE 88 mg/dL (75-110); POTASSIUM 4.1 mmol/L (3.6-5.0); TOTAL PROTEIN 6.7 g/dL (6.3-8.2)
[2018-01-25 23:36] LABS: CREATINE KINASE MB 1.33 ng/mL (<4.55)
[2018-01-25 23:38] LABS: TROPONIN I < 0.012 ng/mL
[2018-01-25] MEDS ORDERED: NITROGLYCERIN 2% OINTMENT 1 GM PACKET TP ONE (23:39)
--- NOTE | 2018-01-25 23:41 | EKG REPORT ---
SEVERITY:- ABNORMAL ECG - SINUS RHYTHM VENTRICULAR BIGEMINY BORDERLINE T ABNORMALITIES, INFERIOR LEADS SHORT QT INTERVAL : Confirmed by: Carina Dixon 25-Jan-2018 23:40:07
--- NOTE | 2018-01-25 23:54 | EKG REPORT ---
SEVERITY:- ABNORMAL ECG - SINUS RHYTHM VENTRICULAR PREMATURE COMPLEX NONSPECIFIC T ABNORMALITIES, INFERIOR LEADS : Confirmed by: Carina Dixon 25-Jan-2018 23:53:40
[2018-01-26] MEDS ORDERED: RANOLAZINE 500 MG TAB.SR.12H PO ONE (02:50)
[2018-01-26] MEDS ORDERED: TICAGRELOR 90 MG TABLET PO ONE (02:50)
[2018-01-26] MEDS ORDERED: NORMAL SALINE 250 ML IV ONE (02:54)
[2018-01-26] MEDS ORDERED: ACETAMINOPHEN 650 MG SUPP.RECT PR PRN (03:40)
[2018-01-26] MEDS ORDERED: ONDANSETRON HCL INJ/PF 4 MG/2 ML SDV IV PRN (03:40)
[2018-01-26] MEDS ORDERED: ACETAMINOPHEN 325 MG TABLET PO PRN (03:40)
[2018-01-26] MEDS ORDERED: DEXTROSE 40% GEL 15 GM TUBE PO PRN ×2 (03:40)
[2018-01-26] MEDS ORDERED: MAGNESIUM HYDROXIDE SUSP 30 ML UDCUP PO PRN (03:40)
[2018-01-26] MEDS ORDERED: ONDANSETRON 4 MG TAB.RAPDIS PO PRN (03:40)
[2018-01-26] MEDS ORDERED: DEXTROSE 50%-WATER 25 GM/50 ML DISP.SYRIN IV PRN ×2 (03:40)
[2018-01-26] MEDS ORDERED: GLUCAGON,HUMAN RECOMB 1 MG INJ SUBCUT PRN (03:40)
[2018-01-26] MEDS ORDERED: NITROGLYCERIN 0.4 MG/TAB 25 TAB/BOTTLE SL PRN (03:50)
[2018-01-26] MEDS ORDERED: NORMAL SALINE 1000 ML 500 ML IV PRN (03:52)
--- NOTE | 2018-01-26 04:19 | PDOC H&P ---
History of Present Illness Admission Date/PCP: 01/26/18 03:02 Patient complains of: Chest pain History of Present Illness: CLAUDY CROWLEY is a 58 year old male with history of multiple medical problems that will be mentioned below presented to the emergency room with acute onset of left parasternal chest pain felt as pressure and graded 6/10 in severity with radiation to his left arm shoulder and neck. He denies any nausea vomiting or diaphoresis with it. No palpitations or dyspnea. He has been having occasional left lower thigh crampy pain but denies any worsening swelling or recent surgery. Upon arrival to the emergency room, his vital signs were within normal. Labs revealed CBC with WBC of 7.9 hemoglobin 13.8 hematocrit 40 platelets 238, sodium 141 potassium 4.1 chloride 107 CO2 22, BUN 10 creatinine 0.77 and blood glucose 88. Initial set of cardiac enzymes came back negative. EKG showed no acute abnormalities with normal sinus rhythm and occasional PVC with ventricular bigeminy on his first EKG. Patient was given 10 mg of p.o. and Reglan and 4 baby aspirins and GI cocktail. He was given Brilinta and Ranexa. The patient will be admitted to an observation telemetry bed for further evaluation and monitoring. Past Medical History Cardiac Medical History: Reports: Coronary Artery Disease, Myocardial Infarction , Hyperlipidema, Hypertension Denies: Congestive Heart Failure Pulmonary Medical History: Reports: Chronic Obstructive Pulmonary Disease (COPD) Denies: Asthma, Bronchitis, Pneumonia, Tuberculosis Neurological Medical History: Denies: Seizures Renal/ Medical History: Denies: End Stage Renal Disease GI Medical History: Denies: Cirrhosis, Gastroesophageal Reflux Disease Musculoskeltal Medical History: Denies: Arthritis Psychiatric Medical History: Denies: Bipolar Disorder, Depression Hematology: Denies: Anemia, Bleeding Tendencies Past Surgical History Past Surgical History: Reports: Appendectomy, Orthopedic Surgery - left thumb; broken rib Social History Smoking Status: Current Every Day Smoker Frequency of Alcohol Use: Heavy - He drinks sixpack of beer daily Drugs: None Family History Family History: CAD - His father of ND in a young age Parental Family History Reviewed: Yes Children Family History Reviewed: Yes Sibling(s) Family History Reviewed.: Yes Medication/Allergy Home Medications: Aspirin [Adult Low Dose Aspirin EC] 81 mg PO DAILY 12/31/17 Atorvastatin Calcium [Lipitor 80 mg Tablet] 80 mg PO QHS 12/31/17 Carvedilol [Coreg 6.25 mg Tablet] 6.25 mg PO Q12 12/31/17 Lisinopril [Zestril] 10 mg PO DAILY 12/31/17 Nitroglycerin [Nitrostat 0.4 mg (1/150 Gr) Tabs 25/Bottle] 0.4 mg SL Q5MP PRN Isosorbide Mononitrate [Imdur 30 mg Tablet.er] 30 mg PO QAM #30 tab.er.24h 01/01 Ranolazine [Ranexa 500 mg Tab.sr] 500 mg PO Q12 #60 tab.sr.12h 01/01/18 Ticagrelor [Brilinta 90 mg Tablet] 90 mg PO BID #60 tablet 01/01/18 Allergies/Adverse Reactions: meperidine HCl [From Demerol] Allergy (Intermediate, Verified 08/29/17 23:55) Hives Review of Systems Review of Systems: As per history of present illness. All pertinent systems were reviewed above. Constitutional, HEENT, cardiovascular, respiratory, GI, , musculoskeletal, neuro, psychiatric, endocrine, integumentary and hematologic systems were reviewed and are otherwise negative/unremarkable except for positive findings mentioned above in the HPI. Physical Exam Vital Signs: Temp Pulse Resp BP Pulse Ox 15 97/78 L 100 01/26/18 03:21 01/26/18 03:21 01/26/18 03:21 Exam: Generally: Pleasant middle-aged male in no acute distress Vital signs-as listed Head - atraumatic, normocephalic. Pupils - equal, round and reactive to light and accommodation. Extraocular movements are intact. No scleral icterus. Oropharynx - moist mucous membranes and tongue. No pharyngeal erythema or exudate. Neck - supple. No JVD. Carotid pulses 2+ bilaterally. No carotid bruits. No palpable thyromegaly or lymphadenopathy. Cardiovascular - regular rate and rhythm. Normal S1 and S2. No murmurs, gallops or rubs. Lungs - clear to auscultation bilaterally. Abdomen - soft and nontender. Positive bowel sounds. No palpable organomegaly or masses. Extremities - no pitting edema, clubbing or cyanosis. Neuro - grossly non-focal. Skin - no rashes. and rectal exam - deferred. Results Impressions: Chest X-Ray 01/25/18 22:17 IMPRESSION: No acute cardiopulmonary findings. Assessment & Plan - Diagnosis (1) Chest pain Qualifiers: Chest pain type: unspecified Qualified Code(s): R07.9 - Chest pain, unspecified Is this a current diagnosis for this admission?: Yes Plan: Chest pain, rule out acute coronary syndrome. The patient will be admitted to an observation telemetry bed. Will follow serial cardiac enzymes and EKGs. We will obtain a cardiology consult in a.m. for further cardiac risk stratification. The patient will be placed on aspirin as well as p.r.n. sublingual nitroglycerin and morphine sulfate for pain. (2) CAD (coronary artery disease) Qualifiers: Coronary Disease-Associated Artery/Lesion type: [place] artery [place] vs. transplanted heart: [place] heart Associated angina: with unspecified angina Qualified Code(s): I25.119 - Atherosclerotic heart disease of [place] coronary artery with unspecified angina pectoris Is this a current diagnosis for this admission?: Yes Plan: We will continue aspirin, Brilinta, beta kael therapy and statin therapy (3) Hyperlipidemia Qualifiers: Hyperlipidemia type: mixed hyperlipidemia Qualified Code(s): E78.2 - Mixed hyperlipidemia Is this a current diagnosis for this admission?: Yes Plan: Statin therapy will be resumed (4) Hypertension Qualifiers: Hypertension type: essential hypertension Qualified Code(s): I10 - Essential (primary) hypertension Is this a current diagnosis for this admission?: Yes Plan: We will continue Coreg, lisinopril and Imdur. (5) ETOH abuse Is this a current diagnosis for this admission?: Yes Plan: The patient was counseled for cessation. He will be placed on as needed IV Ativan and a banana bag (6) Tobacco abuse Is this a current diagnosis for this admission?: Yes Plan: I counseled the patient for smoking cessation and the patient will receive further counseling here. (7) DVT prophylaxis Is this a current diagnosis for this admission?: Yes Plan: Substance Lovenox - Plan Summary Plan Summary: The plan of care was discussed in details with the patient. I answered all questions. The patient agreed to proceed with the above-mentioned plan. The patient is presumably full code. This note was created by [employer] software and may contain typo errors that may have not been proofread.
[2018-01-26] MEDS ORDERED: LORAZEPAM INJ 2 MG/1 ML VIAL IV PRN (04:23)
[2018-01-26] MEDS ORDERED: MORPHINE SULFATE 10 MG/ML INJ IV PRN (04:23)
[2018-01-26] MEDS ORDERED: TICAGRELOR 90 MG TABLET ONE (04:56)
[2018-01-26] MEDS: LANSOPRAZOLE 30 MG TAB.RAP.DR PO SCH (05:01)
[2018-01-26] MEDS: RINGERS SOLUTION,LACTATED 1,000 ML IV PRN (05:13)
[2018-01-26 05:35] LABS: ABSOLUTE BASOPHILS # (AUTO) 0.1 10^3/uL (0.0-0.2); ABSOLUTE EOSINOPHILS # (AUTO) 0.1 10^3/uL (0.0-0.6); ABSOLUTE LYMPHOCYTES (AUTO) 1.7 10^3/uL (0.5-4.7); ABSOLUTE MONOCYTES (AUTO) 0.5 10^3/uL (0.1-1.4); ABSOLUTE NEUT (AUTO) 2.7 10^3/uL (1.7-8.2); BASOPHILS % (AUTO) 2.1 % (0-2); EOSINOPHILS % (AUTO) 2.8 % (0-6); HEMATOCRIT 38.4 % (37.9-51.0); LYMPHOCYTES % (AUTO) 33.4 % (13-45); MEAN CORPUSCULAR HEMOGLOBIN 32.1 pg (27.0-33.4); MEAN CORPUSCULAR HGB CONC 33.7 g/dL (32.0-36.0); MEAN CORPUSCULAR VOLUME 95 fl (80-97); MONOCYTES % (AUTO) 9.1 % (3-13); PLATELET COUNT 193 10^3/uL (150-450); RED BLOOD COUNT 4.04 10^6/uL (4.35-5.55); RED CELL DISTRIBUTION WIDTH 13.2 % (11.5-14.0); SEGMENTED NEUTROPHILS % (AUTO) 52.6 % (42-78); TOTAL CELLS COUNTED % (AUTO) 100 %; WHITE BLOOD COUNT 5.1 10^3/uL (4.0-10.5)
[2018-01-26] MEDS: ISOSORBIDE MONONITRATE 30 MG TAB.ER.24H PO SCH (07:31)
[2018-01-26 08:04] LABS: ANION GAP 12 (5-19); BLOOD UREA NITROGEN 7 mg/dL (7-20); CARBON DIOXIDE 19 mmol/L (22-30); CHLORIDE 112 mmol/L (98-107); GLUCOSE 78 mg/dL (75-110); POTASSIUM 4.4 mmol/L (3.6-5.0); SODIUM 142.8 mmol/L (137-145)
--- NOTE | 2018-01-26 09:23 | Progress Note ---
Provider Note Provider Note: This patient was admitted early this morning for chest pain Is currently pain-free He says he had cardiac cath in April and another one last August From reviewing the records, looks like he had 70% stenosis and ostial diagonal branch that was deemed high risk intervention The decision was to treat medically Continue to observe under telemetry and check serial troponins and EKG Sfdc Developer consulted
[2018-01-26] MEDS ORDERED: ASPIRIN 81 MG TABLET, ENT COATED PO SCH (10:00)
[2018-01-26] MEDS ORDERED: ENOXAPARIN SODIUM INJ 40 MG/0.4 ML DISP.SYRIN SUBCUT SCH (10:00)
[2018-01-26] MEDS ORDERED: LISINOPRIL 10 MG TABLET PO SCH (10:00)
[2018-01-26] MEDS: TICAGRELOR 90 MG TABLET PO SCH ×2 (10:24→17:16)
[2018-01-26] MEDS: RANOLAZINE 500 MG TAB.SR.12H PO SCH ×2 (10:24→21:17)
[2018-01-26] MEDS: CARVEDILOL 6.25 MG TABLET PO SCH ×2 (10:24→21:17)
--- NOTE | 2018-01-26 13:11 | EKG REPORT ---
SEVERITY:- ABNORMAL ECG - SINUS RHYTHM MULTIPLE VENTRICULAR PREMATURE COMPLEXES BORDERLINE T ABNORMALITIES, INFERIOR LEADS : Confirmed by: Cecilia Lemos MD 26-Jan-2018 13:11:21
[2018-01-26] MEDS ORDERED: NORMAL SALINE 1000 ML 1,000 ML with POTASSIUM CHLORIDE 20 MEQ, MAGNESIUM SULFATE 8 MEQ,... IV SCH ×5 (18:00)
--- NOTE | 2018-01-26 20:00 | PDOC CONSULTATION ---
Consultation Consult Date: 01/26/18 Attending physician:: LUCY DUNHAM Consult reason:: Chest pain History of Present Illness Admission Date/PCP: 01/26/18 03:02 Patient complains of: Chest pain History of Present Illness: CLAUDY CROWLEY is a 58 year old male with history of multiple medical problems that will be mentioned below presented to the emergency room with acute onset of left parasternal chest pain felt as pressure and graded 6/10 in severity with radiation to his left arm shoulder and neck. He denies any nausea vomiting or diaphoresis with it. No palpitations or dyspnea. He has been having occasional left lower thigh crampy pain but denies any worsening swelling or recent surgery. Upon arrival to the emergency room, his vital signs were within normal. Labs revealed CBC with WBC of 7.9 hemoglobin 13.8 hematocrit 40 platelets 238, sodium 141 potassium 4.1 chloride 107 CO2 22, BUN 10 creatinine 0.77 and blood glucose 88. Initial set of cardiac enzymes came back negative. EKG showed no acute abnormalities with normal sinus rhythm and occasional PVC with ventricular bigeminy on his first EKG. Patient was given 10 mg of p.o. and Reglan and 4 baby aspirins and GI cocktail. He was given Brilinta and Ranexa. The patient will be admitted to an observation telemetry bed for further evaluation and monitoring. This history obtained by the hospitalist was reviewed and confirmed with the patient. Patient gives history of known CAD and questionable history of prior myocardial infarction but denies CHF, strokes or mini strokes. Patient is a active ongoing smoker. Past Medical History Cardiac Medical History: Reports: Coronary Artery Disease, Myocardial Infarction , Hyperlipidema, Hypertension Denies: Congestive Heart Failure Pulmonary Medical History: Reports: Chronic Obstructive Pulmonary Disease (COPD) Denies: Asthma, Bronchitis, Pneumonia, Tuberculosis Neurological Medical History: Denies: Seizures Renal/ Medical History: Denies: End Stage Renal Disease GI Medical History: Denies: Cirrhosis, Gastroesophageal Reflux Disease Musculoskeltal Medical History: Denies: Arthritis Psychiatric Medical History: Denies: Bipolar Disorder, Depression Hematology: Denies: Anemia, Bleeding Tendencies Past Surgical History Past Surgical History: Reports: Appendectomy, Orthopedic Surgery - left thumb; broken rib Social History Information Source: Patient Smoking Status: Current Every Day Smoker Frequency of Alcohol Use: Heavy - He drinks sixpack of beer daily Drugs: None - Advance Directive Resuscitation Status: Full Code Surrogate healthcare decision maker:: Patient's , Ana Crowley Family History Family History: CAD - His father of [place] in a young age, Hypertension Parental Family History Reviewed: Yes Children Family History Reviewed: Yes Sibling(s) Family History Reviewed.: Yes Medication/Allergy Home Medications: Aspirin [Aspirin EC] 81 mg PO DAILY 01/26/18 Atorvastatin Calcium [Lipitor 80 mg Tablet] 80 mg PO QHS 01/26/18 Carvedilol [Coreg 6.25 mg Tablet] 6.25 mg PO Q12 01/26/18 Clopidogrel Bisulfate [Plavix 75 mg Tablet] 75 mg PO DAILY 01/26/18 Isosorbide Mononitrate [Imdur 30 mg Tablet.er] 30 mg PO DAILY 01/26/18 Lisinopril [Prinivil 10 mg Tablet] 10 mg PO DAILY 01/26/18 Nitroglycerin [Nitrostat 0.4 mg (1/150 Gr) Tabs 25/Bottle] 1 tab SL Q5MP PRN 12/08 Ranolazine [Ranexa 500 mg Tab.sr] 500 mg PO Q12 01/26/18 Allergies/Adverse Reactions: meperidine HCl [From Demerol] Allergy (Intermediate, Verified 01/26/18 08:59) Philippe Review of Systems Review of Systems: Please see history of present illness and past medical history as wall. Constitutional: No fever or chills reported. Head : No recent chronic headaches, recent head injury. Eyes: No recent eye pain, diplopia, redness, discharge, acute visual changes. Ears: No recent chronic ear pain, acute hearing loss, ear discharge. Oral cavity: No recent ulcerations, bleeding, oral cavity discomfort. Neck: No recent acute neck pain reported. Hematologic: No recent easy bruising or bleeding. Lymphatic: No recent lymph node enlargement reported. Cardiovascular system review: See history of present illness. Respiratory system review: No hemoptysis or blood clots in the lungs reported. Mild Shortness of breath on exertion Gastrointestinal system review: Negative for any recent acute hematemesis, melena. Genitourinary system review: No recent acute or chronic hematuria, flank pain, UTI etc. reported. Skin system review: Negative for any recent abnormal bruising, no rash, no pruritus reported. Neurologic: No prior history of strokes, mini strokes, seizure disorder. Psychologic: No history of major psychosis or major depression reported. Musculoskeletal: Minor aches and pains reported. No acute joint swelling reported. Endocrine: No recent polyuria, polydipsia, recent heat or cold intolerance. Physical Exam Vital Signs: Temp Pulse Resp BP Pulse Ox 98.3 F 59 L 16 130/75 H 98 01/26/18 15:00 01/26/18 15:00 01/26/18 15:00 01/26/18 15:00 01/26/18 15:00 Intake & Output 01/25/18 01/26/18 01/27/18 06:59 06:59 06:59 Intake Total 750 1050 Balance 750 1050 Weight 71.2 kg Exam: GENERAL: well-nourished and in no acute distress. Alert and oriented x3 HEAD: Atraumatic, normocephalic. EYES: Pupils equal round and reactive to light, extraocular movements intact, sclera anicteric, conjunctiva are normal. ENT: TMs normal, nares patent, oropharynx clear without exudates. Moist mucous membranes. No oral ulcerations or bleeding gums noted NECK: supple without lymphadenopathy. Trachea is central. No cervical or axillary lymphadenopathy noted. Carotids are 2+, JVD WNL LUNGS: Respiration seems nonlabored, no significant accessory muscle action noted. Breath sounds clear to auscultation bilaterally and equal noted. No wheezes rales or rhonchi noted. No significant dullness noted on percussion. CHEST: Palpation of the chest wall shows no significant chest wall tenderness. 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 ABDOMEN: Soft, no significant tenderness appreciated, normoactive bowel sounds. No guarding, no rebound. No rigidity noted . No masses appreciated. EXTREMITIES: Pedal pulses are 1-2+, no calf tenderness noted. No clubbing or cyanosis. negative pedal edema noted NEUROLOGICAL: Focused neurological exam showed no significant neurologic deficit. Normal speech, no focal weakness appreciated. PSYCH: Normal mood, normal affect. Judgment and insight within normal limits. SKIN: No significant ecchymosis, skin is noted to be warm. MUSCULOSKELETAL EXAM: No significant acute joint swelling noted. Results Laboratory Results: 01/26/18 05:20 01/26/18 05:20 01/26/18 01/26/18 05:20 05:20 WBC 5.1 RBC 4.04 L Hgb 13.0 L Hct 38.4 MCV 95 MCH 32.1 MCHC 33.7 RDW 13.2 Plt Count 193 Seg Neutrophils % 52.6 Lymphocytes % 33.4 Monocytes % 9.1 Eosinophils % 2.8 Basophils % 2.1 H Absolute Neutrophils 2.7 Absolute Lymphocytes 1.7 Absolute Monocytes 0.5 Absolute Eosinophils 0.1 Absolute Basophils 0.1 Sodium 142.8 Potassium 4.4 Chloride 112 H Carbon Dioxide 19 L Anion Gap 12 BUN 7 Creatinine 0.72 Est GFR ( Amer) > 60 Est GFR (Non-Af Amer) > 60 Glucose 78 Calcium 8.0 L 01/26/18 01/26/18 01/26/18 05:20 05:20 11:20 Creatine Kinase 174 H 166 Troponin I < 0.012 01/26/18 01/26/18 01/26/18 11:20 15:45 15:45 Creatine Kinase 162 Troponin I < 0.012 0.016 EKG Comments: Sinus rhythm, no acute ST-T wave changes noted. Impressions: Chest X-Ray 01/25/18 22:17 IMPRESSION: No acute cardiopulmonary findings. Assessment & Plan - Diagnosis (1) Chest pain Qualifiers: Chest pain type: unspecified Qualified Code(s): R07.9 - Chest pain, unspecified Is this a current diagnosis for this admission?: Yes (2) Tobacco abuse Is this a current diagnosis for this admission?: Yes (3) CAD (coronary artery disease) Qualifiers: Coronary Disease-Associated Artery/Lesion type: [place] artery [place] vs. transplanted heart: [place] heart Associated angina: with unspecified angina Qualified Code(s): I25.119 - Atherosclerotic heart disease of [place] coronary artery with unspecified angina pectoris Is this a current diagnosis for this admission?: Yes (4) Hyperlipidemia Qualifiers: Hyperlipidemia type: mixed hyperlipidemia Qualified Code(s): E78.2 - Mixed hyperlipidemia Is this a current diagnosis for this admission?: Yes (5) Hypertension Qualifiers: Hypertension type: essential hypertension Qualified Code(s): I10 - Essential (primary) hypertension Is this a current diagnosis for this admission?: Yes (6) COPD (chronic obstructive pulmonary disease) Qualifiers: Emphysema type: unspecified Is this a current diagnosis for this admission?: Yes - Notes Notes: Nuclear stress test and 2D echo. Optimize medical management for the underlying CAD. Recommend risk factor modification. Chest pain: Patient has some typical and atypical features of chest pain. Cardiac enzymes so far has been negative. Electrocardiogram did not show any definitive ST segment changes. Multiple differential diagnoses exist in this patient. In descending order of probability this includes underlying coronary artery disease, gastroesophageal reflux, musculoskeletal pain, referred pain from elsewhere, anxiety panic disorder etc.Patient has significant cardiac risk factors, which indicates that there is a intermediate probability of chest discomfort coming from underlying CAD. Feel that it would need to be evaluated further. Discussed evaluation to assess this. In this regard risk benefits of nuclear stress test and other alternative processes were discussed in detail. The patient prefers to undergo nuclear stress test. The small risk of radiation , myocardial infarction, , cardiac arrhythmias, respiratory distress etc. were discussed. Patient understood the risks and gave informed consent. Nuclear stress test was therefore scheduled. For risk evaluation, patient is also being scheduled for a 2-D echocardiogram. Patient questions were answered. Patient has history of chronic smoking. Discussed detrimental effect of chronic smoking including worsening COPD, increased risk of cardiovascular events, cerebrovascular events, cancer and multiple other side effects of smoking. The benefits of smoking cessation discussed. Patient unwilling to give acommitment to quit. Patient informed that we'll be happy to help should pt decide to quit. Continue nicotine patch while inpatient. CAD: Patient has known history of CAD. Currently admitted with chest pain. Now chest pain-free. There were no EKG changes and enzymes are negative. Patient will benefit from a nuclear stress test. Patient will also benefit from a 2-D echocardiogram for risk stratification. Patient to be treated with antiplatelet therapy, high potency statin therapy, beta blockers, angiotensin receptor kael, BPIIN inhibitors et cetera. Patient advised against tobacco abuse in any form. Patient to follow healthy lifestyle, low-cholesterol diet etc. Hypertension: Reasonably well controlled. Blood pressure goal in this patient is 135/85 or less. This was discussed with the patient. Currently blood pressure under reasonable control. Better medication for this patient are BIPIN inhibitor/ARB/beta kael etc. Hyperlipidemia: LDL goal is less than 70. Recommend statin therapy at least intermediate or high dose, of high potency status. Periodic lipid panel and liver panel is indicated. Patient to report any significant muscle discomfort or other side effects. COPD patient encouraged to avoid first-hand and secondhand smoking. Patient also advised to avoid environmental pollutants. Patient to use bronchodilator and steroid therapy as has been prescribed by PMD and other specialists. - Time Time Spent: 30 to 50 Minutes - CODE STATUS was discussed, patient remains full code. Surrogate decision-maker unchanged. Multiple medical problems were addressed. More than 50% of the time spent coordinating care, discussing management plans with involved caregivers. Management plans discussed with involved personnels. Medical decision making was of moderate to high complexity , patient's has multiple comorbidities. Medications reviewed and adjusted accordingly: Yes
[2018-01-26] MEDS ORDERED: ATORVASTATIN CALCIUM 80 MG TABLET PO SCH (22:00)
[2018-01-27] MEDS: RINGERS SOLUTION,LACTATED 1,000 ML IV PRN (03:25)
[2018-01-27] MEDS: LANSOPRAZOLE 30 MG TAB.RAP.DR PO SCH (05:06)
[2018-01-27 05:30] LABS: CHOLESTEROL 103.12 mg/dL (0-200); TRIGLYCERIDES 49 mg/dL (<150)
[2018-01-27 05:42] LABS: DIRECT LDL 33 mg/dL (<100)
[2018-01-27 08:23] VITALS: BP 160/85
[2018-01-27] MEDS: ISOSORBIDE MONONITRATE 30 MG TAB.ER.24H PO SCH (08:43)
--- NOTE | 2018-01-27 22:53 | PDOC DISCHARGE SUMMARY ---
General - Admit/Disc Date/PCP Admission Date/Primary Care Provider: 01/26/18 03:02 Discharge Date: 01/27/18 - Discharge Diagnosis (1) CAD (coronary artery disease) Is this a current diagnosis for this admission?: Yes (2) Chest pain Is this a current diagnosis for this admission?: Yes (3) ETOH abuse Is this a current diagnosis for this admission?: Yes (4) Hypertension Is this a current diagnosis for this admission?: Yes - Additional Information Resuscitation Status: Full Code Home Medications: Aspirin [Aspirin EC] 81 mg PO DAILY 01/26/18 Atorvastatin Calcium [Lipitor 80 mg Tablet] 80 mg PO QHS 01/26/18 Carvedilol [Coreg 6.25 mg Tablet] 6.25 mg PO Q12 01/26/18 Clopidogrel Bisulfate [Plavix 75 mg Tablet] 75 mg PO DAILY 01/26/18 Isosorbide Mononitrate [Imdur 30 mg Tablet.er] 30 mg PO DAILY 01/26/18 Lisinopril [Prinivil 10 mg Tablet] 10 mg PO DAILY 01/26/18 Nitroglycerin [Nitrostat 0.4 mg (1/150 Gr) Tabs 25/Bottle] 1 tab SL Q5MP PRN 12/08 Ranolazine [Ranexa 500 mg Tab.sr] 500 mg PO Q12 01/26/18 History of Present Illness History of Present Illness: CLAUDY CROWLEY is a 58 year old male Hospital Course Hospital Course: The patient was admitted through the ED for chest pain. He has known CAD. Cardiology was consulted and the patient was ruled out for NM by EKG and enzyme criteria. He was seen by Dr. Dixon this morning. An echocardiogram and a nuclear medicine stress test was ordered for the patient. When the patient learned that he would not be able to have his studies completed today, he decided to leave [place]. He will follow up with Dr. Dixon as outpatient. Physical Exam Vital Signs: Temp Pulse Resp BP Pulse Ox 98.0 F 57 L 16 160/85 H 100 01/27/18 07:42 01/27/18 07:42 01/27/18 07:42 01/27/18 07:42 01/27/18 07:42 Intake & Output 01/26/18 01/27/18 01/28/18 06:59 06:59 06:59 Intake Total 750 3523 Balance 750 3523 Weight 71.2 kg 71.4 kg Additional comments: The patient left AMA before a physical examination could be performed. Results Laboratory Results: 01/26/18 05:20 01/26/18 05:20 01/27/18 04:24 Triglycerides 49 Cholesterol 103.12 LDL Cholesterol Direct 33 VLDL Cholesterol 10.0 HDL Cholesterol 50 01/26/18 01/26/18 01/26/18 05:20 05:20 11:20 Creatine Kinase 174 H 166 Troponin I < 0.012 01/26/18 01/26/18 01/26/18 11:20 15:45 15:45 Creatine Kinase 162 Troponin I < 0.012 0.016 01/25/18 01/26/18 01/26/18 22:55 01:40 05:20 Troponin I < 0.012 < 0.012 < 0.012 01/26/18 01/26/18 11:20 15:45 Troponin I < 0.012 0.016 EKG Comments: No ischemic changes. Impressions: Chest X-Ray 01/25/18 22:17 IMPRESSION: No acute cardiopulmonary findings. Qualifiers - * PATIENT BEING DISCHARGED WITH ANY OF THE FOLLOWING DIAGNOSIS: No
== END 2018-01-27 09:15 | disposition left against medical advice (07) ==
LOC: ER 22:11 → EH 01-26 03:02 → 5 01-26 04:04
PROVIDERS: ADMIT Family Medicine; ATTEND Family Medicine
DX: I25.119 Atherosclerotic heart disease of native coronary artery with unspecified angina pectoris (principal); R07.89 Other chest pain; F10.10 Alcohol abuse, uncomplicated; I10 Essential (primary) hypertension; I49.3 Ventricular premature depolarization; F17.200 Nicotine dependence, unspecified, uncomplicated; E78.2 Mixed hyperlipidemia; J43.9 Emphysema, unspecified; R11.0 Nausea; Z79.82 Long term (current) use of aspirin; Z79.899 Other long term (current) drug therapy; Z53.21 Procedure and treatment not carried out due to patient leaving prior to being seen by health care provider; Z90.49 Acquired absence of other specified parts of digestive tract; Z82.49 Family history of ischemic heart disease and other diseases of the circulatory system
CPT/HCPCS: 93005 ×2; 99285; 36415 ×3; 82553; 82550 ×2; 85025 ×2; 80048; 80053; 84484 ×2; 80061; 71045; 93010 ×2; G0378 ×2; J3490 ×3; J3475; J1650; J3480; J3411; J7030; J7050; J7120 ×2

== ENCOUNTER 2018-06-02 11:39 | Emergency (ER) | payer BC ==
[2018-06-02] MEDS ORDERED: ASPIRIN 81 MG TABLET, CHEWABLE PO ONE (12:58)
--- NOTE | 2018-06-02 13:04 | EKG REPORT ---
SEVERITY:- ABNORMAL ECG - SINUS RHYTHM VENTRICULAR TRIGEMINY CONSIDER ANTEROSEPTAL INFARCT VERSUS LEAD PLACEMENT : Confirmed by: Cecilia Lemos MD 02-Jun-2018 13:04:03
[2018-06-02 13:16] VITALS: BP 110/83
[2018-06-02 13:26] LABS: ABSOLUTE BASOPHILS # (AUTO) 0.1 10^3/uL (0.0-0.2); ABSOLUTE EOSINOPHILS # (AUTO) 0.2 10^3/uL (0.0-0.6); ABSOLUTE LYMPHOCYTES (AUTO) 1.9 10^3/uL (0.5-4.7); ABSOLUTE MONOCYTES (AUTO) 0.6 10^3/uL (0.1-1.4); ABSOLUTE NEUT (AUTO) 3.5 10^3/uL (1.7-8.2); BASOPHILS % (AUTO) 1.2 % (0-2); EOSINOPHILS % (AUTO) 2.7 % (0-6); HEMATOCRIT 42.3 % (37.9-51.0); HEMOGLOBIN 14.6 g/dL (13.5-17.0); LYMPHOCYTES % (AUTO) 30.3 % (13-45); MEAN CORPUSCULAR HEMOGLOBIN 33.1 pg (27.0-33.4); MEAN CORPUSCULAR HGB CONC 34.6 g/dL (32.0-36.0); MEAN CORPUSCULAR VOLUME 96 fl (80-97); MONOCYTES % (AUTO) 8.9 % (3-13); PLATELET COUNT 231 10^3/uL (150-450); RED BLOOD COUNT 4.41 10^6/uL (4.35-5.55); RED CELL DISTRIBUTION WIDTH 13.2 % (11.5-14.0); SEGMENTED NEUTROPHILS % (AUTO) 56.9 % (42-78); TOTAL CELLS COUNTED % (AUTO) 100 %; WHITE BLOOD COUNT 6.2 10^3/uL (4.0-10.5)
[2018-06-02 13:47] LABS: ALANINE AMINOTRANSFERASE 35 U/L (21-72); ALBUMIN 3.9 g/dL (3.5-5.0); ALKALINE PHOSPHATASE 90 U/L (38-126); ANION GAP 12 (5-19); ASPARTATE AMINO TRANSFERASE 40 U/L (17-59); BILIRUBIN,DIRECT 0.2 mg/dL (0.0-0.4); BILIRUBIN,TOTAL 0.6 mg/dL (0.2-1.3); BLOOD UREA NITROGEN 8 mg/dL (7-20); CALCIUM 9.2 mg/dL (8.4-10.2); CARBON DIOXIDE 25 mmol/L (22-30); CHLORIDE 103 mmol/L (98-107); CREATINE KINASE 135 U/L (55-170); GLUCOSE 64 mg/dL (75-110); POTASSIUM 4.4 mmol/L (3.6-5.0); TOTAL PROTEIN 7.2 g/dL (6.3-8.2)
--- NOTE | 2018-06-02 13:55 | RADIOLOGY REPORT (SQ) ---
EXAM DESCRIPTION: CHEST SINGLE VIEW COMPLETED DATE/TIME: 06/02/2018 1:37 pm REASON FOR STUDY: Chest pain COMPARISON: 01/25/2018 EXAM PARAMETERS: NUMBER OF VIEWS: One view. TECHNIQUE: Single frontal radiographic view of the chest acquired. RADIATION DOSE: NA LIMITATIONS: None. FINDINGS: LUNGS AND PLEURA: Emphysematous change with hyperinflation. No evidence of focal airspace disease, pleural effusion or pneumothorax. MEDIASTINUM AND HILAR STRUCTURES: No masses. Contour normal. HEART AND VASCULAR STRUCTURES: Normal heart size. Atherosclerotic aorta. BONES: No acute findings. HARDWARE: None in the chest. OTHER: Hiatal hernia. IMPRESSION: Emphysematous change without evidence of acute cardiopulmonary process. TECHNICAL DOCUMENTATION: JOB ID: [id number] [employer]- All Rights Reserved Reading location - IP/workstation name: [id number]
[2018-06-02 13:59] LABS: CREATINE KINASE MB 1.58 ng/mL (<4.55)
[2018-06-02 14:01] LABS: TROPONIN I < 0.012 ng/mL
--- NOTE | 2018-06-02 17:44 | ER Document Report ---
ED Cardiac - General Chief Complaint: Chest Pain > 30 Stated Complaint: CHEST PAIN Time Seen by Provider: 06/02/18 12:14 Mode of Arrival: Ambulatory Information source: Patient TRAVEL OUTSIDE OF THE [place] IN LAST 30 DAYS: No - HPI Patient complains to provider of: Chest pain - 58-year-old man who is an alcoholic a tobacco abuser has chronic angina and has had episodes in the past which have required hospitalization that presents for chest pain. He had an episode this morning which she was driving to work and began to have chest pain. His notes that this is the third time he has had chest pain in the last 2 weeks. 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 He continues to smoke cigarettes and drink alcohol. Has not talked to his burglar alarm inspector. - Related Data Allergies/Adverse Reactions: meperidine HCl [From Demerol] Allergy (Intermediate, Verified 06/02/18 11:46) Hives Past Medical History - General Information source: Patient, Relative - Social History Smoking Status: Current Every Day Smoker Chew tobacco use (# tins/day): No Frequency of alcohol use: daily Drug Abuse: Marijuana Family History: CAD - His father of [place] in a young age, Hypertension Patient has suicidal ideation: No Patient has homicidal ideation: No - Past Medical History Cardiac Medical History: Reports: Hx Coronary Artery Disease, Hx Heart Attack, Hx Hypercholesterolemia, Hx Hypertension Denies: Hx Congestive Heart Failure Pulmonary Medical History: Reports: Hx COPD Denies: Hx Asthma, Hx Bronchitis, Hx Pneumonia, Hx Tuberculosis Neurological Medical History: Denies: Hx Seizures Renal/ Medical History: Denies: Hx Benign Prostatic Hyperplasia, Hx End Stage Renal Disease, Hx Kidney Stones, Hx Peritoneal Dialysis GI Medical History: Denies: Hx Cirrhosis, Hx Gastroesophageal Reflux Disease, Hx Ulcer Musculoskeletal Medical History: Denies Hx Arthritis, Denies Hx Multiple Sclerosis Psychiatric Medical History: Denies: Hx Bipolar Disorder, Hx Depression, Hx Schizophrenia Past Surgical History: Reports: Hx Appendectomy, Hx Orthopedic Surgery - left thumb; broken rib - Immunizations Immunizations up to date: No Hx Diphtheria, Pertussis, Tetanus Vaccination: Yes Review of Systems - Review of Systems -: Yes All other systems reviewed and negative Physical Exam - Vital signs Vitals: Temp Pulse Resp BP Pulse Ox 98.5 F 67 20 117/71 95 06/02/18 11:47 06/02/18 11:47 06/02/18 11:47 06/02/18 11:47 06/02/18 11:47 Interpretation: Normal - General General appearance: Appears well, Alert - HEENT Head: Normocephalic, Atraumatic Eyes: Normal Pupils: PERRL - Respiratory Respiratory status: No respiratory distress Chest status: Nontender Breath sounds: Normal Chest palpation: Normal - Cardiovascular Rhythm: Regular Heart sounds: Normal auscultation Murmur: No - Abdominal Inspection: Normal Distension: No distension Bowel sounds: Normal Tenderness: Nontender Organomegaly: No organomegaly - Back Back: Normal, Nontender - Extremities General upper extremity: Normal inspection, Nontender, Normal color, Normal ROM , Normal temperature General lower extremity: Normal inspection, Nontender, Normal color, Normal ROM , Normal temperature, Normal weight bearing. No: Rolando's sign - Neurological Neuro grossly intact: Yes Cognition: Normal Orientation: AAOx4 Prabha Coma Scale Eye Opening: Spontaneous Prabha Coma Scale Verbal: Oriented [place] Coma Scale Motor: Obeys Commands Prabha Coma Scale Total: 15 Speech: Normal Motor strength normal: LUE, RUE, LLE, RLE Sensory: Normal - Psychological Associated symptoms: Normal affect, Normal mood - Skin Skin Temperature: Warm Skin Moisture: Dry Skin Color: Normal Course - Re-evaluation Re-evalutation: 06/02/18 17:45 This 58-year-old man presents with his third episode of atraumatic angina type pain in the last 2 weeks. On examination he is hemodynamically stable, he is asymptomatic at this time. Did note that I am markedly concerned given his history, he is still an everyday drinker still a cigarette smoker has high blood pressure he does not seem to care for himself. His is at the bedside. His initial troponin is negative, given his risk factors he is a score of 2, his EKG is slightly abnormal he is a score of 1, his story is moderately concerned he gets a score of 1, and his age is 58 he gets a score of 1, his total heart score is a 5. Prior to being unable to obtain a second set negative troponin after I had discussed with the patient the importance thereof he eloped out of the emergency department. I did tell him that I was concerned he may be having a major heart attack and developing into having a major heart attack. Told him he may drop . He did not speak to me prior to leaving the emergency department. I did not see him leave the emergency department. I am uncertain whether or not he was stable at the time of elopement. - Vital Signs Vital signs: Temp Pulse Resp BP Pulse Ox 98.3 F 66 13 110/83 92 06/02/18 13:15 06/02/18 12:24 06/02/18 13:13 06/02/18 13:13 06/02/18 13:13 - Laboratory Result Diagrams: 06/02/18 13:09 06/02/18 13:09 Laboratory results interpreted by me: 06/02/18 13:09 Glucose 64 L Discharge - Discharge Clinical Impression: Chest pain Condition: Stable Disposition: ELOPED
== END 2018-06-02 15:05 | disposition left against medical advice (07) ==
LOC: ER 11:39
DX: I25.119 Atherosclerotic heart disease of native coronary artery with unspecified angina pectoris (principal); I10 Essential (primary) hypertension; I25.2 Old myocardial infarction; J44.9 Chronic obstructive pulmonary disease, unspecified; E11.9 Type 2 diabetes mellitus without complications; F10.20 Alcohol dependence, uncomplicated; F17.210 Nicotine dependence, cigarettes, uncomplicated; Z82.49 Family history of ischemic heart disease and other diseases of the circulatory system; Z88.5 Allergy status to narcotic agent; Z53.20 Procedure and treatment not carried out because of patient's decision for unspecified reasons
CPT/HCPCS: 36415; 71045; 80053; 82550; 82553; 84484; 85025; 93005; 93010; 99281

== ENCOUNTER 2019-08-03 07:17 | Emergency (ER) | payer BC ==
[2019-08-03 08:25] LABS: ABSOLUTE BASOPHILS # (AUTO) 0.1 10^3/uL (0.0-0.2); ABSOLUTE LYMPHOCYTES (AUTO) 0.8 10^3/uL (0.5-4.7); ABSOLUTE MONOCYTES (AUTO) 0.4 10^3/uL (0.1-1.4); ABSOLUTE NEUT (AUTO) 7.8 10^3/uL (1.7-8.2); BASOPHILS % (AUTO) 0.9 % (0-2); HEMATOCRIT 43.5 % (37.9-51.0); HEMOGLOBIN 15.2 g/dL (13.5-17.0); LYMPHOCYTES % (AUTO) 8.6 % (13-45); MEAN CORPUSCULAR HEMOGLOBIN 33.5 pg (27.0-33.4); MEAN CORPUSCULAR HGB CONC 34.9 g/dL (32.0-36.0); MEAN CORPUSCULAR VOLUME 96 fl (80-97); MONOCYTES % (AUTO) 4.8 % (3-13); PLATELET COUNT 217 10^3/uL (150-450); RED BLOOD COUNT 4.54 10^6/uL (4.35-5.55); RED CELL DISTRIBUTION WIDTH 13.2 % (11.5-14.0); SEGMENTED NEUTROPHILS % (AUTO) 85.7 % (42-78); TOTAL CELLS COUNTED % (AUTO) 100 %; WHITE BLOOD COUNT 9.1 10^3/uL (4.0-10.5)
[2019-08-03 08:41] LABS: ALBUMIN 4.2 g/dL (3.5-5.0); ALKALINE PHOSPHATASE 95 U/L (38-126); ANION GAP 13 (5-19); ASPARTATE AMINO TRANSFERASE 57 U/L (17-59); BILIRUBIN,TOTAL 0.5 mg/dL (0.2-1.3); BLOOD UREA NITROGEN 12 mg/dL (7-20); CARBON DIOXIDE 21 mmol/L (22-30); CHLORIDE 102 mmol/L (98-107); CREATINE KINASE 298 U/L (55-170); GLUCOSE 96 mg/dL (75-110); POTASSIUM 4.5 mmol/L (3.6-5.0); TOTAL PROTEIN 7.6 g/dL (6.3-8.2)
--- NOTE | 2019-08-03 08:58 | ER Document Report ---
Entered by RYDER PATTERSON SCRIBE 08/03/19 0829 Acting as scribe for:CLINTON REDDY MD ED General - General Chief Complaint: Chest Pain Stated Complaint: CHEST PAIN Time Seen by Provider: 08/03/19 08:00 Primary Care Provider: CHELA DEVINE MD [Primary Care Provider] - Follow up as needed Mode of Arrival: Ambulatory Information source: Patient Notes: This 59 year old male patient presents to the ED today with complaints of sharp, sudden onset left-sided chest pain that woke him up at 0330 this morning. Patient states that he has a history of chest pain and that the last time he had these symptoms was in 2018. Patient states that he did not take any aspirin or nitroglycerin. Patient states that he has "a blockage" in his artery that has not required a stent and that his radio maintainer is Dr. Devine. Patient is on on Plavix and blood pressure medications, but has not taken the blood pressure medication today. Patient denies shortness of breath. TRAVEL OUTSIDE OF THE [place] IN LAST 30 DAYS: No - Related Data Allergies/Adverse Reactions: meperidine HCl [From Demerol] Allergy (Intermediate, Verified 06/02/18 11:46) Hives Past Medical History - Social History Smoking Status: Current Every Day Smoker Cigarette use (# per day): Yes - 0.5 ppd Chew tobacco use (# tins/day): No Smoking Education Provided: No Frequency of alcohol use: Heavy Occupation: [employer] Family History: Reviewed & Not Pertinent, CAD - His father of [place] in a young age, Hypertension Patient has suicidal ideation: No Patient has homicidal ideation: No - Past Medical History Cardiac Medical History: Reports: Hx Coronary Artery Disease, Hx Heart Attack, Hx Hypercholesterolemia, Hx Hypertension Pulmonary Medical History: Reports: Hx COPD Past Surgical History: Reports: Hx Appendectomy, Hx Orthopedic Surgery - left thumb; broken rib - Immunizations Immunizations up to date: No Hx Diphtheria, Pertussis, Tetanus Vaccination: Yes Review of Systems - Review of Systems Constitutional: No symptoms reported EENT: No symptoms reported Cardiovascular: See HPI, Chest pain Respiratory: See HPI. denies: Short of breath Gastrointestinal: No symptoms reported Genitourinary: No symptoms reported Male Genitourinary: No symptoms reported Musculoskeletal: No symptoms reported Skin: No symptoms reported Hematologic/Lymphatic: No symptoms reported Neurological/Psychological: No symptoms reported -: Yes All other systems reviewed and negative Physical Exam - Vital signs Vitals: Temp Pulse Resp BP Pulse Ox 98.8 F 101 H 18 166/104 H 96 08/03/19 07:36 08/03/19 07:36 08/03/19 07:36 08/03/19 07:36 08/03/19 07:36 - General General appearance: Alert - HEENT Head: Normocephalic, Atraumatic Eyes: Normal Pupils: PERRL - Respiratory Respiratory status: No respiratory distress Chest status: Other - Anterior chest wall tenderness with palpation, worse on the left side than the right. Breath sounds: Normal Chest palpation: Normal - Cardiovascular Rhythm: Regular Heart sounds: Normal auscultation Murmur: No - Abdominal Inspection: Normal Distension: No distension Bowel sounds: Normal Tenderness: Nontender Organomegaly: No organomegaly - Back Back: Normal, Nontender - Extremities General upper extremity: Normal inspection General lower extremity: Normal inspection Shoulder: Tender - L anterior shoulder tenderness with palpation. - Neurological Neuro grossly intact: Yes - Psychological Associated symptoms: Normal affect, Normal mood - Skin Skin Temperature: Warm Skin Moisture: Dry Skin Color: Normal Course - Re-evaluation Re-evalutation: 08/03/19 09:41 Patient reports constant chest pain since 3:30 AM this morning. There are no EKG ischemic changes. The patient does seem to have reproducible pain in the area of his chest shoulder and arm where he complained of the ongoing discomfort. 08/03/19 14:58 The patient states that he has not missed his medications. That he has plenty of medication at home. I looked in the pharmacy records that were able to access, and it shows the last time he filled any prescriptions was the end of March and beginning of April 2019. He states that last time he filled them he does not know why but they gave him "great big bottles" and that he has plenty of medication. Those records indicated a 30-day supply. I discussed this case with Dr. Devine who wanted me to have him increase his isosorbide from 30 mg daily to 60 mg daily, add Brilinta if he was not taking Plavix, and to be seen in the office on at 12 noon. 08/03/19 15:10 EKG did not show acute changes. Physical exam shows reproducible musculoskeletal chest wall and left shoulder and arm pain. Troponins did stabilize in the mid indeterminate range with out rising. - Vital Signs Vital signs: Temp Pulse Resp BP Pulse Ox 98.1 F 101 H 17 165/93 H 95 08/03/19 12:59 08/03/19 07:36 08/03/19 14:01 08/03/19 14:00 08/03/19 14:01 - Laboratory Result Diagrams: 08/03/19 08:11 08/03/19 08:11 Laboratory results interpreted by me: 08/03/19 08/03/19 08:11 08:11 MCH 33.5 H Lymph % (Auto) 8.6 L Seg Neutrophils % 85.7 H Sodium 135.5 L Carbon Dioxide 21 L Creatine Kinase 298 H - Diagnostic Test Radiology reviewed: Image reviewed, Reports reviewed - Chest x-ray shows COPD without acute changes - EKG Interpretation by Me EKG shows normal: Sinus rhythm, [place], Intervals. abnormal: QRS Complexes - Borderline R wave progression in the anterior leads, ST-T Waves - Borderline T wave abnormalities Rate: Normal - 99 Rhythm: NSR When compared to previous EKG there are: No significant change Discharge - Discharge Clinical Impression: Musculoskeletal chest pain Coronary artery disease Qualifiers: Coronary Disease-Associated Artery/Lesion type: [place] artery [place] vs. transplanted heart: [place] heart Associated angina: with unspecified angina Qualified Code(s): I25.119 - Atherosclerotic heart disease of [place] coronary artery with unspecified angina pectoris High blood pressure Qualifiers: Hypertension type: essential hypertension Qualified Code(s): I10 - Essential (primary) hypertension Condition: Stable Disposition: HOME, SELF-CARE Additional Instructions: Chest Wall Pain: Your chest pain has been diagnosed as coming from the chest wall. This is often caused by straining the muscles or joints in the chest during physical activity, direct trauma, coughing, or vigorous vomiting. Persons with arthritis are especially prone to this type of pain, due to inflammation of the cartilage joints near the breast bone. Occasionally, no cause can be found. Rest from strenuous physical activity. This kind of chest pain is usually made worse by movement of the chest. Depending on the symptoms, we may prescribe medicine for pain, muscle relaxation, and antiinflammatory effects. If the pain is new, and seems to be due to muscle strain, cold packs can help. Otherwise, apply gentle warmth to the painful area for 15 minutes every hour or two. You should contact the doctor immediately if things change. Further evaluation is needed if you develop a fever or cough, if the nature of the pain changes, or if you become short of breath. Your exam today suggest that the pain you are experiencing is coming from your chest wall and the muscles in your shoulder and arm. You do have known coronary artery disease but your evaluation today does not suggest this discomfort is due to your heart at this time. Your blood pressure is running a little high today. You were given a dose of Lopressor IV to bring down your blood pressure and heart rate. I did talk with Dr. Devine and he wants you to increase your isosorbide mononitrate to 60 mg daily. If you have already taken 1 dose today, then take an additional dose when you get home. Be sure you do not miss any of your regular medications. Follow-up with Dr. Devine in the office on at 12 noon. Call the office to confirm your appointment time. RETURN TO THE EMERGENCY ROOM IF ANY NEW OR WORSENING SYMPTOMS. Referrals: CHELA DEVINE MD [Primary Care Provider] - 08/05/19 12:00 pm Scribe Attestation: 08/03/19 09:05 I personally performed the services described in the documentation, reviewed and edited the documentation which was dictated to the scribe in my presence, and it accurately records my words and actions. I personally performed the services described in the documentation, reviewed and edited the documentation which was dictated to the scribe in my presence, and it accurately records my words and actions.
[2019-08-03 09:05] LABS: CREATINE KINASE MB 3.12 ng/mL (<4.55); TROPONIN I 0.033 ng/mL
--- NOTE | 2019-08-03 10:08 | EKG REPORT ---
SEVERITY:- BORDERLINE ECG - SINUS RHYTHM BORDERLINE R WAVE PROGRESSION, ANTERIOR LEADS BORDERLINE T WAVE ABNORMALITIES LATERAL LEADS. : Confirmed by: Eduardo Lenz MD 03-Aug-2019 10:08:01
--- NOTE | 2019-08-03 10:19 | RADIOLOGY REPORT (SQ) ---
EXAM DESCRIPTION: CHEST SINGLE VIEW COMPLETED DATE/TIME: 08/03/2019 10:04 am REASON FOR STUDY: Chest pain COMPARISON: 06/02/2018. NUMBER OF VIEWS: One view. TECHNIQUE: Single frontal radiographic view of the chest acquired. LIMITATIONS: None. FINDINGS: LUNGS AND PLEURA: No opacities, masses or pneumothorax. No pleural effusion. Attenuated bl ood vessels and flattened max-diaphragms. MEDIASTINUM AND HILAR STRUCTURES: No masses. Contour normal. HEART AND VASCULAR STRUCTURES: Heart normal in size. Normal vasculature. BONES: No acute findings. HARDWARE: None in the chest. OTHER: No other significant finding. IMPRESSION: COPD. NO ACUTE RADIOGRAPHIC FINDING IN THE CHEST. TECHNICAL DOCUMENTATION: JOB ID: [id number] 2010 [employer]- All Rights Reserved Reading location - IP/workstation name: [email or web address]
[2019-08-03] MEDS ORDERED: KETOROLAC TROMETHAMINE INJ/PF 30 MG/1 ML SDV IV ONE (12:34)
[2019-08-03] MEDS ORDERED: METOPROLOL TARTRATE PF/INJ 5 MG/5 ML SDV IV ONE (15:09)
[2019-08-03] MEDS ORDERED: METOPROLOL SUCCINATE 25 MG TAB.SR.24H PO ONE (15:59)
[2019-08-03 16:14] VITALS: BP 148/100
== END 2019-08-03 16:15 | disposition home or self-care (01) ==
LOC: ER 07:17
DX: I25.119 Atherosclerotic heart disease of native coronary artery with unspecified angina pectoris (principal); I10 Essential (primary) hypertension; R07.89 Other chest pain; M25.512 Pain in left shoulder; M79.602 Pain in left arm; R94.31 Abnormal electrocardiogram [ECG] [EKG]; I25.2 Old myocardial infarction; J44.9 Chronic obstructive pulmonary disease, unspecified; F17.210 Nicotine dependence, cigarettes, uncomplicated; Z79.02 Long term (current) use of antithrombotics/antiplatelets; Z79.899 Other long term (current) drug therapy; Z88.6 Allergy status to analgesic agent; Z88.5 Allergy status to narcotic agent; Z82.49 Family history of ischemic heart disease and other diseases of the circulatory system
CPT/HCPCS: 93005; 36415; 82553; 82550; 85025; 80053; 84484; 71045; 93010; J1885; J3490